=== PATIENT | male | born 1965 | race Caucasian/White ===

== ENCOUNTER 2016-07-02 08:01 | Day surgery (SDC) | payer OTHER ==
[~2016-07-02 08:01] MED LIST: Lactated Ringers 1,000 ML IV SCH
[2016-07-02] MEDS ORDERED: Clindamycin Phosphate in D5W 600 MG in Premix Bag 1 BAG IV ONE ×2 (12:00)
[2016-07-02] MEDS ORDERED: Bupivacaine 0.25%/EPINEPHrine 1:200,000 10 ML SDV INJECT ONE (12:00)
[2016-07-02] MEDS ORDERED: Acetaminophen/HYDROcodone 325-5 MG Tab PO PRN (12:00)
[2016-07-02] MEDS ORDERED: Propofol 200 MG/20 ML SDV ONE (12:16)
[2016-07-02] MEDS ORDERED: Midazolam 1 MG/ML 2 ML SDV ONE (12:16)
[2016-07-02] MEDS ORDERED: Lidocaine 2% 5 ML SDV ONE (12:16)
[2016-07-02] MEDS ORDERED: fentaNYL 250 MCG/5 ML SDV ONE (12:17)
[2016-07-02] MEDS ORDERED: Ondansetron 4 MG/2 ML SDV ONE (12:17)
--- NOTE | 2016-07-02 12:41 | PCM.PREANE ---
Preanesthetic Assessment - Anesthesia/Transfusion/Family Hx Anesthesia History: Prior Anesthesia Without Reaction Family History of Anesthesia Reaction: No Transfusion History: No Prior Transfusion(s) Intubation History: Unknown - Review of Systems General: No Symptoms Pulmonary: No Symptoms Cardiovascular: No Symptoms Gastrointestinal: No symptoms Neurological: No Symptoms Other: Reports: None - Physical Assessment Height: 1.8 m Weight: 95.254 kg ASA Class: 2 Mental Status: Alert & Oriented x3 Airway Class: Mallampati = 2 Dentition: Reports: Normal Dentition Thyro-Mental Finger Breadths: 3 Mouth Opening Finger Breadths: 3 ROM/Head Extension: Full Lungs: Clear to auscultation, Normal respiratory effort Cardiovascular: Regular Rate, Regular Rhythm - Allergies Allergies/Adverse Reactions: Allergies Allergy/AdvReac Type Severity Reaction Status Date / Time cephalexin [From Keflex] Allergy Rash Verified 06/30/16 10:37 - Blood Blood Available: No - Anesthesia Plan Pre-Op Medication Ordered: None - Acknowledgements Anesthesia Type Planned: General Anesthesia Pt an Appropriate Candidate for the Planned Anesthesia: Yes Alternatives and Risks of Anesthesia Discussed w Pt/Guardian: Yes Pt/Guardian Understands and Agrees with Anesthesia Plan: Yes PreAnesthesia Questionnaire Cardiovascular History: Reports: High cholesterol, Hypertension Gastrointestinal History: Reports: GERD Musculoskeletal History: Reports: Arthritis, Back pain, chronic Neurological History: Reports: Concussion - Past Surgical History Head Surgeries/Procedures: Reports: None GI Surgical History: Reports: Colonoscopy, EGD Musculoskeletal Surgical History: Reports: Other (see below) Other Musculoskeletal Surgeries/Procedures:: rt thumb surgery x2, lt thumb surgery x1 - SUBSTANCE USE Smoking Status *Q: Former Smoker (quit 13 years ago) Second Hand Smoke Exposure: No Recreational Drug Use History: No - HOME MEDS Home Medications: Home Meds Esomeprazole Magnesium [Nexium] 40 mg PO ASDIRECTED 06/30/16 [History] Hydrocodone/Acetaminophen [Hydrocodon-Acetaminophen 5-325] 1 tab PO ASDIRECTED PRN 06/30/16 [History] Losartan Potassium 100 mg PO BEDTIME 06/30/16 [History] Simvastatin [Zocor] 40 mg PO BEDTIME 06/30/16 [History] Zolpidem [Ambien] 10 mg PO BEDTIME 06/30/16 [History] - CURRENT (IN HOUSE) MEDS Current Meds: Current Medications Hydrocodone Bitart/Acetaminophen ([place] 325-5 Mg) 1 tab PO Q4H PRN PRN Reason: Pain Lactated Ringer's (Ringers, Lactated) 1,000 mls @ 125 mls/hr IV ASDIRECTED CASSY Last Admin: 07/02/16 11:20 Dose: 125 mls/hr Discontinued Medications Bupivacaine HCl/Epinephrine Bitart (Marcaine 0.25%/Epinephrine 1:200,000) 10 ml INJECT ONETIME ONE Stop: 07/02/16 12:01 Fentanyl (Sublimaze) Confirm Administered Dose 250 mcg .ROUTE .STK-MED ONE Stop: 07/02/16 12:18 Clindamycin Phosphate 600 mg/ (Premix) 50 mls @ 150 mls/hr IV ONETIME ONE Stop: 07/02/16 12:19 Lidocaine (Xylocaine-Mpf 2%) Confirm Administered Dose 10 ml .ROUTE .STK-MED ONE Stop: 07/02/16 12:17 Midazolam HCl (Versed 1 Mg/Ml) Confirm Administered Dose 2 mg .ROUTE .STK-MED ONE Stop: 07/02/16 12:17 Ondansetron HCl (Zofran) Confirm Administered Dose 4 mg .ROUTE .STK-MED ONE Stop: 07/02/16 12:18 Propofol (Diprivan 20 Ml) Confirm Administered Dose 400 mg .ROUTE .STK-MED ONE Stop: 07/02/16 12:17
[2016-07-02] MEDS ORDERED: Bupivacaine 0.25%/EPINEPHrine 1:200,000 10 ML SDV ONE (12:53)
[2016-07-02] MEDS: fentaNYL 100 MCG/2 ML SDV IVPUSH PRN ×2 (15:08→15:15)
--- NOTE | 2016-07-02 15:42 | PCM.POSTAN ---
POST ANESTHESIA ASSESSMENT - MENTAL STATUS Mental Status: alert, oriented - RESPIRATORY Respiratory Status: respiratory rate WNL, airway patent, O2 saturation stable - CARDIOVASCULAR CV Status: pulse rate WNL, blood pressure stable - GASTROINTESTINAL GI Status: no symptoms - PAIN Pain Score: 3 - POST OP HYDRATION Hydration Status: adequate & stable - OBSERVATIONS Free Text/Narrative:: no anesthesia problems
--- NOTE | 2016-07-02 15:56 | PCM48HPAN ---
Post Anesthesia Note - EVALUATION WITHIN 48HRS OF ANESTHETIC Vital Signs in Normal Range: Yes Patient Participated in Evaluation: Yes Respiratory Function Stable: Yes Airway Patent: Yes Cardiovascular Function Stable: Yes Hydration Status Stable: Yes Pain Control Satisfactory: Yes Nausea and Vomiting Control Satisfactory: Yes Mental Status Recovered: Yes
--- NOTE | 2016-07-02 16:15 | PCM.OPNOTE ---
- General Post-Op/Procedure Note Date of Surgery/Procedure: 07/02/16 Operative Procedure(s): fusion of right thumb cmc joint Pre Op Diagnosis: right thumb cmc arthritis Post-Op Diagnosis: Same Anesthesia Technique: General LMA, Local Primary Surgeon: Brittany Mckeon Carpet Sewer: Lucía Obrien Complications: None Condition: Good Free Text/Narrative:: Intake & Output 07/02/16 07/02/16 07/02/16 07:59 15:59 23:59 Intake Total 1200 Balance 1200
[2016-07-02 16:59] VITALS: BP 117/95
--- NOTE | 2016-07-03 21:36 | OR ---
SURGEON: ASAEL MCKEON MD DATE OF PROCEDURE: 07/02/2016 PREOPERATIVE DIAGNOSIS: Right thumb CMC joint arthritis. POSTOPERATIVE DIAGNOSIS: Right thumb CMC joint arthritis. PROCEDURE: Fusion of right thumb CMC joint. SILO TENDER: Lucía Obrien PA-C. ANESTHESIA: General LMA with local anesthesia. INDICATIONS: Mr. Dominguez is a 51-year-old gentleman, who is seen today in evaluation for right thumb CMC arthritis. Risks and benefits of fusion of the CMC joint were discussed with him and he was in agreement to proceed. Risks were including, but not limited to, bleeding, infection, damage to underlying or overlying structures, continued arthritis on the hand and wrist, and potential need for future interventions and possible scarring. PROCEDURE IN DETAIL: After informed consent was obtained and placed on the chart, the patient was brought to the operating theater in supine position. After adequate general anesthesia was obtained, the area was prepped and draped, and a time-out was completed to confirm side and site. The arm was then exsanguinated and tourniquet was inflated to 200 mmHg. A local anesthetic was injected into the area. Once adequately anesthetized, attention was then paid to a curvilinear incision over the CMC joint of the right thumb. Dissection was carried down until the joint was completely visualized with regard to the base of the metacarpal and carpal bone. A flat bone saw was used to remove the proximal end of the metacarpal and distal end of the trapezium. After copious irrigation of this joint and meticulous hemostasis while taking care to protect all superficial branches of the radial nerve, two 0.62 K-wires were placed in a retrograde fashion through the metacarpal. This was then reapproximated and the pins were driven in a retrograde fashion into the remaining trapezium. Appropriate position was confirmed under fluoroscopy. Once this was completed, the area was copiously irrigated and the periosteum and joint capsule were closed using FiberWire stitches in a [id number] fashion and the skin was closed using deep 4-0 Monocryl stitches and a running 4-0 subcuticular for the skin. The wound was dressed with a short-arm thumb spica splint. Of note, there were no Jurgan's Balls for coverage of the pins and they were trimmed flush to the skin. We will remove these with a small stab incision in the clinic later. The patient tolerated the procedure well and all counts and needles were correct at the end of the case. FOLLOWUP INSTRUCTIONS: The patient will see us in clinic in approximately 2 weeks for possible splinting, sooner if any problems, questions, or concerns. He was given a prescription for pain control. HEGGTHE / PINKYL /[id number]
== END 2016-07-02 16:50 | disposition home or self-care (01) ==
LOC: MW.SDS 08:01
PROVIDERS: ATTEND Plastic Surgery
DX: M18.31 Unilateral post-traumatic osteoarthritis of first carpometacarpal joint, right hand (principal); I10 Essential (primary) hypertension; K21.9 Gastro-esophageal reflux disease without esophagitis; E78.00 Pure hypercholesterolemia, unspecified; Z88.1 Allergy status to other antibiotic agents; Z79.899 Other long term (current) drug therapy; Z98.890 Other specified postprocedural states
CPT/HCPCS: 26841; A9270; J2250; J2405; J3010; J7120; 01830; J2704

== ENCOUNTER → 2016-07-07 | Outpatient (CLI) | payer OTHER ==
[2016-07-07 15:44] LABS: CHLORIDE,CL 106 mmol/L (98-110); SODIUM,NA 143 mmol/L (136-146)
== END ==
LOC: MW.CHFP 15:00
PROVIDERS: ATTEND Nurse Practitioner Family
DX: E78.00 Pure hypercholesterolemia, unspecified (principal)
CPT/HCPCS: 36415; 80053; 80061

== ENCOUNTER 2017-03-02 03:00 | Emergency (ER) | payer OTHER ==
[2017-03-02] MEDS ORDERED: Sodium Chloride 0.9% 10 ML Syringe FLUSH PRN (03:17)
[2017-03-02] MEDS ORDERED: Sodium Chloride 0.9% 2.5 ML Syringe FLUSH PRN (03:17)
[2017-03-02] MEDS ORDERED: Albuterol/Ipratropium 3.0-0.5 MG/3 ML Neb Soln NEB ONE (03:17)
[2017-03-02] MEDS ORDERED: Sodium Chloride 0.9% 1,000 ML IV ONE (03:17)
[2017-03-02] MEDS ORDERED: Ketorolac 30 MG/ML SDV IVPUSH ONE (03:17)
[2017-03-02] MEDS ORDERED: Acetaminophen 500 MG Tab PO ONE (03:20)
--- NOTE | 2017-03-02 03:20 | EDM.PDOC ---
ED HPI GENERAL MEDICAL PROBLEM - General Chief Complaint: Respiratory Problem Stated Complaint: SHORTNESS OF BREATH, COLD Time Seen by Provider: 03/02/17 03:05 - History of Present Illness INITIAL COMMENTS - FREE TEXT/NARRATIVE: HISTORY AND PHYSICAL: History of present illness: The patient is a 51-year-old male with a history of hypertension and hypercholesterolemia but no pulmonary issues who presents with complaints of cough occasionally productive of phlegm, chest congestion sore throat subjective fever and chills diffuse body aches and shortness of breath that have been ongoing for the last 24-36 hours. Patient states he did get his influenza shot and he had an episode similar to this a few years ago and was worked up. He says he has discomfort when he is coughing which is bilateral and is improved when he is not coughing. He has no abdominal pain no nausea vomiting or diarrhea no leg pain or swelling no urinary complaints. Patient's is starting to get ill as well he says that he only has coughed up a small amount of phlegm which was green in color. Review of systems: As per history of present illness and below otherwise all systems reviewed and negative. Past medical history: As per history of present illness and as reviewed below otherwise noncontributory. Surgical history: As per history of present illness and as reviewed below otherwise noncontributory. Social history: No reported history of drug or alcohol abuse. Family history: As per history of present illness and as reviewed below otherwise noncontributory. Physical exam: Gen.: Well-developed well-nourished man who is not breathless on my evaluation and not hoarse. He doesn't have nasal quality to voice and vital signs are noted by me including the temp of 101.7 orally. His O2 sat of 92% on room air is also noted. HEENT: Atraumatic, normocephalic, pupils reactive, negative for conjunctival pallor or scleral icterus, mucous membranes moist, throat clear of exudates but there is some posterior oropharyngeal erythema, there is no cervical adenopathy or nuchal rigidity, neck supple, nontender, trachea midline. Lungs: Clear to auscultation, breath sounds equal bilaterally, chest nontender. No worker breathing or sensory muscle use no wheezing or stridor. There is some diminished breath sounds at the bases but is otherwise clear when the patient takes a deep breath it seems to trigger a cough. Heart: S1S2, regular rhythm and tachycardic rate of my evaluation, negative for clicks, rubs, or JVD. Abdomen: Soft, nondistended, nontender. Negative for masses or hepatosplenomegaly. Negative for costovertebral tenderness. Pelvis: Stable nontender. Genitourinary: Deferred. Rectal: Deferred. Extremities: Atraumatic, negative for cords or calf pain. Neurovascular unremarkable. No pedal edema or leg asymmetry Neuro: Awake, alert, oriented. Cranial nerves II through XII unremarkable. Cerebellum unremarkable. Motor and sensory unremarkable throughout. Exam nonfocal. Diagnostics: EKG chest x-ray CBC CMP rapid strep influenza lactic acid Therapeutics: IV fluids Tylenol Toradol DuoNeb Patient is aware of all testing results and care plan for home including Tamiflu prescription, which she can fill or not fill depending on his preference , Tylenol and ibuprofen for fevers and body aches hydration and follow-up in the clinic. Patient's O2 sat on room air is currently 94% on my evaluation Impression: Influenza A Definitive disposition and diagnosis as appropriate pending reevaluation and review of above. Chest Pain Score (Numeric/FACES): 3 - Related Data Allergies Allergy/AdvReac Type Severity Reaction Status Date / Time cephalexin [From Keflex] Allergy Rash Verified 06/30/16 10:37 Home Meds: Home Meds Esomeprazole Magnesium [Nexium] 40 mg PO ASDIRECTED 06/30/16 [History] Losartan Potassium 100 mg PO BEDTIME 06/30/16 [History] Simvastatin [Zocor] 40 mg PO BEDTIME 06/30/16 [History] Zolpidem [Ambien] 10 mg PO BEDTIME 06/30/16 [History] Escitalopram Oxalate 10 mg PO DAILY 03/02/17 [History] Pregabalin [Lyrica] 03/02/17 [History] Past Medical History Cardiovascular History: Reports: High Cholesterol, Hypertension Gastrointestinal History: Reports: GERD Musculoskeletal History: Reports: Arthritis, Back Pain, Chronic Neurological History: Reports: Concussion - Past Surgical History Head Surgeries/Procedures: Reports: None GI Surgical History: Reports: Colonoscopy, EGD Musculoskeletal Surgical History: Reports: Other (See Below) Other Musculoskeletal Surgeries/Procedures:: CMC fusion, previous thumb surgeries Social & Family History - Tobacco Use Smoking Status *Q: Never Smoker Month Tobacco Last Used: quit smoking 14 yrs ago Second Hand Smoke Exposure: No - Caffeine Use Caffeine Use: Reports: Coffee, Soda, Tea - Recreational Drug Use Recreational Drug Use: No ED ROS GENERAL - Review of Systems Review Of Systems: ROS reveals no pertinent complaints other than HPI. ED EXAM, GENERAL - Physical Exam Exam: See Below (See dictation) Course - Vital Signs Last Recorded V/S: Last Vital Signs Temp 38.7 C H 03/02/17 03:38 Pulse 112 H 03/02/17 03:44 Resp 18 03/02/17 03:44 BP 100/74 03/02/17 03:44 Pulse Ox 99 03/02/17 03:44 - Orders/Labs/Meds Orders: Active Orders 24 hr Category Date Time Status EKG Documentation Completion [RC] STAT Care 03/02/17 03:16 Active RT Aerosol Therapy [RC] ASDIRECTED Care 03/02/17 03:17 Active Chest 2V [CR] Stat Exams 03/02/17 03:17 Taken CULTURE STREP A CONFIRMATION [RM] Stat Lab 03/02/17 03:34 Results STREP SCRN A RAPID W CULT CONF [RM] Stat Lab 03/02/17 03:34 Results Sodium Chloride 0.9% [Saline Flush] Med 03/02/17 03:17 Active 10 ml FLUSH ASDIRECTED PRN Sodium Chloride 0.9% [Saline Flush] Med 03/02/17 03:17 Active 2.5 ml FLUSH ASDIRECTED PRN Saline Lock Insert [OM.PC] Stat Oth 03/02/17 03:16 Ordered Medication Orders Sodium Chloride (Saline Flush) 10 ml FLUSH ASDIRECTED PRN PRN Reason: Keep Vein Open Last Admin: 03/02/17 03:43 Dose: 10 ml Sodium Chloride (Saline Flush) 2.5 ml FLUSH ASDIRECTED PRN PRN Reason: Keep Vein Open Last Admin: 03/02/17 03:38 Dose: 2.5 ml Labs: Laboratory Tests 03/02/17 03/02/17 03/02/17 Range/Units 03:34 03:34 03:34 WBC 8.12 (4.0-11.0) K/uL RBC 5.07 (4.50-5.90) M/uL Hgb 15.8 (13.0-17.0) g/dL Hct 45.4 (38.0-50.0) % MCV 89.5 (80.0-98.0) fL MCH 31.2 (27.0-32.0) pg MCHC 34.8 (31.0-37.0) g/dL RDW Std Deviation 43.1 (28.0-62.0) fl RDW Coeff of Jose David 13 (11.0-15.0) % Plt Count 189 (150-400) K/uL MPV 9.30 (7.40-12.00) fL Neut % (Auto) 78.1 (48.0-80.0) % Lymph % (Auto) 10.0 L (16.0-40.0) % [place] % (Auto) 10.8 (0.0-15.0) % Eos % (Auto) 1.0 (0.0-7.0) % Baso % (Auto) 0.1 (0.0-1.5) % Neut # (Auto) 6.3 H (1.4-5.7) K/uL Lymph # (Auto) 0.8 (0.6-2.4) K/uL [place] # (Auto) 0.9 H (0.0-0.8) K/uL Eos # (Auto) 0.1 (0.0-0.7) K/uL Baso # (Auto) 0.0 (0.0-0.1) K/uL Nucleated RBC % 0.0 /100WBC Nucleated RBCs # 0 K/uL Lactate 1.4 (0.20-2.00) mmol/L Sodium 138 (136-146) mmol/L Potassium 3.9 (3.5-5.1) mmol/L Chloride 103 (98-110) mmol/L Carbon Dioxide 24 (21-31) mmol/L BUN 15 (6.0-23.0) mg/dL Creatinine 0.9 (0.6-1.5) mg/dL Est Cr Clr Drug Dosing 104.58 mL/min Estimated GFR (MDRD) > 60.0 ml/min Glucose 107 (60-110) mg/dL Calcium 9.7 (8.8-10.8) mg/dL Total Bilirubin 1.5 (0.1-1.5) mg/dL AST 26 (5-40) IU/L ALT 42 (8-54) IU/L Alkaline Phosphatase 82 (40-150) Total Protein 7.3 (6.0-8.0) g/dL Albumin 4.4 (3.5-5.0) g/dL Globulin 2.9 (2.0-3.5) g/dL Albumin/Globulin Ratio 1.5 (1.3-2.8) Meds: Medications Generic Name Dose Route Start Last Admin Trade Name Freq PRN Reason Stop Dose Admin Sodium Chloride 10 ml 03/02/17 03:17 03/02/17 03:43 Saline Flush FLUSH 10 ml ASDIRECTED PRN Administration Keep Vein Open Sodium Chloride 2.5 ml 03/02/17 03:17 03/02/17 03:38 Saline Flush FLUSH 2.5 ml ASDIRECTED PRN Administration Keep Vein Open Discontinued Medications Generic Name Dose Route Start Last Admin Trade Name Saúlq PRN Reason Stop Dose Admin Acetaminophen 1,000 mg 03/02/17 03:20 03/02/17 03:38 Tylenol Extra Strength PO 03/02/17 03:21 1,000 mg ONETIME ONE Administration Albuterol/Ipratropium 3 ml 03/02/17 03:17 03/02/17 03:39 Duoneb 3.0-0.5 Mg/3 Ml NEB 03/02/17 03:18 3 ml ONETIME ONE Administration Sodium Chloride 1,000 mls @ 999 mls/hr 03/02/17 03:17 03/02/17 03:41 Normal Saline IV 03/02/17 04:17 999 mls/hr STAT ONE Administration Ketorolac Tromethamine 30 mg 03/02/17 03:17 03/02/17 03:42 Toradol IVPUSH 03/02/17 03:18 30 mg ONETIME ONE Administration Departure - Departure Time of Disposition: 04:53 Disposition: Home, Self-Care 01 Condition: Good Clinical Impression: Influenza A - Discharge Information Referrals: PCP,None [Primary Care Provider] - Forms: ED Department Discharge Additional Instructions: The following information is given to patients seen in the emergency department who are being discharged to home. This information is to outline your options for follow-up care. We provide all patients seen in our emergency department with a follow-up referral. The need for follow-up, as well as the timing and circumstances, are variable depending upon the specifics of your emergency department visit. If you don't have a primary care physician on staff, we will provide you with a referral. We always advise you to contact your personal physician following an emergency department visit to inform them of the circumstance of the visit and for follow-up with them and/or the need for any referrals to a consulting specialist. The emergency department will also refer you to a specialist when appropriate. This referral assures that you have the opportunity for followup care with a specialist. All of these measure are taken in an effort to provide you with optimal care, which includes your followup. Under all circumstances we always encourage you to contact your private physician who remains a resource for coordinating your care. When calling for followup care, please make the office aware that this follow-up is from your recent emergency room visit. If for any reason you are refused follow-up, please contact the [facility] emergency department at and ask to speak to the emergency department charge nurse. [facility] Primary care- Internal [place] [address] Push hydration and rest. Please use [id number] Tylenol and ibuprofen for fever and body aches. Take Tamiflu as you choose and as prescribed as we discussed. Use cough medicine prescribed as needed and please call our clinic or your provider for reevaluation and further care in the next few days. Return to ER as needed and as discussed. - My Orders Last 24 Hours: My Active Orders 03/02/17 03:16 EKG Documentation Completion [RC] STAT Saline Lock Insert [OM.PC] Stat 03/02/17 03:17 RT Aerosol Therapy [RC] ASDIRECTED Chest 2V [CR] Stat Sodium Chloride 0.9% [Saline Flush] 10 ml FLUSH ASDIRECTED PRN Sodium Chloride 0.9% [Saline Flush] 2.5 ml FLUSH ASDIRECTED PRN 03/02/17 03:34 CULTURE STREP A CONFIRMATION [RM] Stat STREP SCRN A RAPID W CULT CONF [RM] Stat - Assessment/Plan Last 24 Hours: My Active Orders 03/02/17 03:16 EKG Documentation Completion [RC] STAT Saline Lock Insert [OM.PC] Stat 03/02/17 03:17 RT Aerosol Therapy [RC] ASDIRECTED Chest 2V [CR] Stat Sodium Chloride 0.9% [Saline Flush] 10 ml FLUSH ASDIRECTED PRN Sodium Chloride 0.9% [Saline Flush] 2.5 ml FLUSH ASDIRECTED PRN 03/02/17 03:34 CULTURE STREP A CONFIRMATION [RM] Stat STREP SCRN A RAPID W CULT CONF [RM] Stat
[2017-03-02 03:45] VITALS: BP 100/74
[2017-03-02 04:01] LABS: CHLORIDE,CL 103 mmol/L (98-110); SODIUM,NA 138 mmol/L (136-146)
--- NOTE | 2017-03-02 15:50 | CR ---
EXAM DATE: 03/02/17 PATIENT'S AGE: 51 Patient: YG CESPEDES Facility: [place], [place] Site . Site : [id number] Study: XRay Chest [id number] 4:11:07 AM Ordering Physician: Tyson Abdul Final Report: INDICATIONS: Shortness of breath. TECHNIQUE: Chest 2 view. COMPARISON: None FINDINGS: No pneumothorax, pleural effusion or airspace consolidation. Cardiac and mediastinal contours are within normal limits. The upper abdomen and osseous structures show no acute abnormality. IMPRESSION: No evidence of acute cardiopulmonary disease. Dictated by Marcos Whelan MD @ 03/02/2017 4:14:50 AM Dictated by: Marcos Whelan MD @ 03/02/2017 04:14:57 (Electronic Signature) Report Signed by Proxy. [facility]
== END 2017-03-02 05:15 | disposition home or self-care (01) ==
LOC: MW.ED 03:00
DX: J10.1 Influenza due to other identified influenza virus with other respiratory manifestations (principal); I10 Essential (primary) hypertension; E78.00 Pure hypercholesterolemia, unspecified; Z88.1 Allergy status to other antibiotic agents; Z79.899 Other long term (current) drug therapy
CPT/HCPCS: 36415; 71046; 80053; 83605; 85025; 87081; 87804; 87880; 93005; 94640; 96361; 96374; 99285; A9270; J1885; J7040; 99284

== ENCOUNTER 2017-05-28 15:05 | Observation (INO) | payer OTHER ==
[2017-05-28] MEDS ORDERED: Sodium Chloride 0.9% 10 ML Syringe FLUSH PRN ×2 (15:11→17:42)
[2017-05-28] MEDS ORDERED: Sodium Chloride 0.9% 2.5 ML Syringe FLUSH PRN ×2 (15:11→17:42)
[2017-05-28] MEDS ORDERED: Aspirin 81 MG Tab.Chew PO ONE (15:12)
[2017-05-28] MEDS: Nitroglycerin 0.4 MG Tab.SL SL PRN ×3 (15:42→15:52)
[2017-05-28 16:03] LABS: CHLORIDE,CL 104 mmol/L (98-107); SODIUM,NA 140 mmol/L (136-148)
--- NOTE | 2017-05-28 16:11 | EDM.PDOC ---
ED HPI GENERAL MEDICAL PROBLEM - General Chief Complaint: Chest Pain Stated Complaint: CHEST PAIN Time Seen by Provider: 05/28/17 15:11 Source of Information: Reports: Patient History Limitations: Reports: No Limitations - History of Present Illness INITIAL COMMENTS - FREE TEXT/NARRATIVE: History of present illness: []Patient started having chest pain as his front left axilla 2 hours prior to arrival has been a 6/10 pain and continuous. It has not let up. He denies any sweating, dizziness states he feels a little short of breath but also states repeatedly he thinks that's his abdomen getting in the way. 2 weeks ago patient' s brother had a heart attack with a 90% blockage of coronary artery. His father has had several KS's in the past. Review of systems: As per history of present illness and below otherwise all systems reviewed and negative. Past medical history: As per history of present illness and as reviewed below otherwise noncontributory. Surgical history: As per history of present illness and as reviewed below otherwise noncontributory. Social history: No reported history of drug or alcohol abuse. Family history: As per history of present illness and as reviewed below otherwise noncontributory. Physical exam: General: Well developed, well nourished in NAD HEENT: Atraumatic, normocephalic, pupils reactive, negative for conjunctival pallor or scleral icterus, mucous membranes moist, throat clear, neck supple, nontender, trachea midline. Lungs: Clear to auscultation, breath sounds equal bilaterally, chest nontender. Heart: S1S2, regular, negative for clicks, rubs, or JVD. Abdomen: Soft, nondistended, nontender. Negative for masses or hepatosplenomegaly. Negative for costovertebral tenderness. Pelvis: Stable nontender. Genitourinary: Deferred. Rectal: Deferred. Extremities: Atraumatic, negative for cords or calf pain. Neurovascular unremarkable. Neuro: Awake, alert, oriented. Cranial nerves II through XII unremarkable. Cerebellum unremarkable. Motor and sensory unremarkable throughout. Exam nonfocal. Diagnostics: []CBC negative chemistry negative troponin negative chest x-ray negative EKG normal sinus rhythm no acute ischemia Therapeutics: []Aspirin and nitroglycerin with alleviation of chest pain completely Impression: []ACS Plan: []Admit for rule out KS Definitive disposition and diagnosis as appropriate pending reevaluation and review of above. Left Upper Chest Pain Score (Numeric/FACES): 0 - Related Data Allergies Allergy/AdvReac Type Severity Reaction Status Date / Time cephalexin [From Keflex] Allergy Rash Verified 06/30/16 10:37 Home Meds: Home Meds Esomeprazole Magnesium [Nexium] 40 mg PO ASDIRECTED 06/30/16 [History] Losartan Potassium 100 mg PO BEDTIME 06/30/16 [History] Simvastatin [Zocor] 40 mg PO BEDTIME 06/30/16 [History] Zolpidem [Ambien] 10 mg PO BEDTIME 06/30/16 [History] Escitalopram Oxalate 10 mg PO DAILY 03/02/17 [History] Past Medical History Cardiovascular History: Reports: High Cholesterol, Hypertension Gastrointestinal History: Reports: GERD Musculoskeletal History: Reports: Arthritis, Back Pain, Chronic Neurological History: Reports: Concussion - Past Surgical History Head Surgeries/Procedures: Reports: None GI Surgical History: Reports: Colonoscopy, EGD Musculoskeletal Surgical History: Reports: Other (See Below) Other Musculoskeletal Surgeries/Procedures:: CMC fusion, previous thumb surgeries Social & Family History - Family History Family Medical History: Noncontributory - Tobacco Use Smoking Status *Q: Former Smoker Used Tobacco, but Quit: Yes Month/Year Tobacco Last Used: 2003 Second Hand Smoke Exposure: No - Caffeine Use Caffeine Use: Reports: Coffee - Recreational Drug Use Recreational Drug Use: No ED ROS GENERAL - Review of Systems Review Of Systems: See Below (See history of present illness) ED EXAM, GENERAL - Physical Exam Exam: See Below (See history of present illness) Course - Vital Signs Last Recorded V/S: Last Vital Signs Temp 97.9 F 05/28/17 15:10 Pulse 79 05/28/17 15:10 Resp 18 05/28/17 15:10 BP 124/73 05/28/17 15:56 Pulse Ox 99 05/28/17 15:10 - Orders/Labs/Meds Orders: Active Orders 24 hr Category Date Time Status Sodium Chloride 0.9% [Saline Flush] Med 05/28/17 15:11 Active 10 ml FLUSH ASDIRECTED PRN Sodium Chloride 0.9% [Saline Flush] Med 05/28/17 15:11 Active 2.5 ml FLUSH ASDIRECTED PRN Saline Lock Insert [OM.PC] Stat Oth 05/28/17 15:11 Ordered Medication Orders Sodium Chloride (Saline Flush) 10 ml FLUSH ASDIRECTED PRN PRN Reason: Keep Vein Open Sodium Chloride (Saline Flush) 2.5 ml FLUSH ASDIRECTED PRN PRN Reason: Keep Vein Open Labs: Laboratory Tests 05/28/17 05/28/17 05/28/17 Range/Units 15:32 15:32 15:32 WBC 6.67 (4.0-11.0) K/uL RBC 5.06 (4.50-5.90) M/uL Hgb 15.7 (13.0-17.0) g/dL Hct 44.9 (38.0-50.0) % MCV 88.7 (80.0-98.0) fL MCH 31.0 (27.0-32.0) pg MCHC 35.0 (31.0-37.0) g/dL RDW Std Deviation 41.1 (28.0-62.0) fl RDW Coeff of Jose David 13 (11.0-15.0) % Plt Count 221 (150-400) K/uL MPV 9.50 (7.40-12.00) fL Neut % (Auto) 49.9 (48.0-80.0) % Lymph % (Auto) 41.2 H (16.0-40.0) % [place] % (Auto) 6.7 (0.0-15.0) % Eos % (Auto) 1.9 (0.0-7.0) % Baso % (Auto) 0.3 (0.0-1.5) % Neut # (Auto) 3.3 (1.4-5.7) K/uL Lymph # (Auto) 2.8 H (0.6-2.4) K/uL [place] # (Auto) 0.5 (0.0-0.8) K/uL Eos # (Auto) 0.1 (0.0-0.7) K/uL Baso # (Auto) 0.0 (0.0-0.1) K/uL Nucleated RBC % 0.0 /100WBC Nucleated RBCs # 0 K/uL Sodium 140 (136-148) mmol/L Potassium 4.3 (3.5-5.1) mmol/L Chloride 104 (98-107) mmol/L Carbon Dioxide 27.9 (21.0-32.0) mmol/L BUN 22 H (7.0-18.0) mg/dL Creatinine 0.9 (0.8-1.3) mg/dL Est Cr Clr Drug Dosing 100.26 mL/min Estimated GFR (MDRD) > 60.0 ml/min Glucose 75 (74-106) mg/dL Calcium 9.2 (8.5-10.1) mg/dL Total Bilirubin 0.8 (0.2-1.0) mg/dL AST 27 (15-37) IU/L ALT 48 (14-63) IU/L Alkaline Phosphatase 69 (46-116) U/L Troponin I < 0.050 (0.000-0.056) ng/mL B-Natriuretic Peptide < 15 (<100) PG/ML Total Protein 7.3 (6.4-8.2) g/dL Albumin 4.2 (3.4-5.0) g/dL Globulin 3.1 (2.0-3.5) g/dL Albumin/Globulin Ratio 1.4 (1.3-2.8) Lipase 180 (73-393) U/L Meds: Medications Generic Name Dose Route Start Last Admin Trade Name Freq PRN Reason Stop Dose Admin Sodium Chloride 10 ml 05/28/17 15:11 Saline Flush FLUSH ASDIRECTED PRN Keep Vein Open Sodium Chloride 2.5 ml 05/28/17 15:11 Saline Flush FLUSH ASDIRECTED PRN Keep Vein Open Discontinued Medications Generic Name Dose Route Start Last Admin Trade Name Freq PRN Reason Stop Dose Admin Aspirin 324 mg 05/28/17 15:12 05/28/17 15:40 Aspirin PO 05/28/17 15:13 324 mg ONETIME ONE Administration Nitroglycerin 0.4 mg 05/28/17 15:12 05/28/17 15:52 Nitrostat SL 0.4 mg Q5M PRN Administration Chest Pain Departure - Departure Time of Disposition: 16:40 Disposition: Refer to Observation Condition: Good Clinical Impression: Acute coronary syndrome Referrals: PCP,Unknown [Primary Care Provider] - Forms: ED Department Discharge - My Orders Last 24 Hours: My Active Orders 05/28/17 15:11 Sodium Chloride 0.9% [Saline Flush] 10 ml FLUSH ASDIRECTED PRN Sodium Chloride 0.9% [Saline Flush] 2.5 ml FLUSH ASDIRECTED PRN Saline Lock Insert [OM.PC] Stat - Assessment/Plan Last 24 Hours: My Active Orders 05/28/17 15:11 Sodium Chloride 0.9% [Saline Flush] 10 ml FLUSH ASDIRECTED PRN Sodium Chloride 0.9% [Saline Flush] 2.5 ml FLUSH ASDIRECTED PRN Saline Lock Insert [OM.PC] Stat
--- NOTE | 2017-05-28 16:31 | CR ---
EXAMINATION: Portable chest radiograph. HISTORY: Shortness of breath. FINDINGS: The trachea is midline. The cardiomediastinal silhouette is within normal limits. No pulmonary infilt rates, effusions or pneumothorax. Osseous structures appear unremarkable. IMPRESSION: No acute cardiopulmonary process.
[2017-05-28] MEDS ORDERED: Acetaminophen 325 MG Tab PO PRN (17:42)
[2017-05-28] MEDS ORDERED: oxyCODONE 5 MG Tab PO PRN (17:42)
[2017-05-28] MEDS ORDERED: Ondansetron 4 MG Tab.DIS PO PRN (17:42)
[2017-05-28] MEDS ORDERED: Enoxaparin 40 MG/0.4 ML Syringe SUBCUT SCH (17:45)
[2017-05-28] MEDS ORDERED: Nitroglycerin 0.4 MG Tab.SL SL PRN (17:46)
--- NOTE | 2017-05-28 17:48 | PCM.HP ---
H&P History of Present Illness - General Date of Service: 05/28/17 Admit Problem/Dx: Admission Diagnosis/Problem Admission Diagnosis/Problem Acute coronary syndrome - History of Present Illness Initial Comments - Free Text/Narative: This is a 52-year-old male who is presenting to the ER secondary to chest pain on the front left side towards the shoulder area that has been ongoing for the past couple of hours, the chest pain is about 6 out of 10 in nature. It has not dissipated, patient does not know of any known triggers or factors that may have caused it. Patient denies any signs of infection including nausea vomiting diarrhea or constipation, patient denies any dizziness, but he does state he has some mild shortness of breath possibly anxiety related as the patient has also reported that he just recently had a brother that had a myocardial infarction due to coronary artery disease as well his has a significant family history with his father also having several heart attacks. She also does have a history of gastroesophageal reflux disease for which he is taking a PPI, patient also is taking a statin for dyslipidemia, Ambien for sleep dysfunction, and SSRI for anxiety/depression type issues. Left Upper Chest Pain Score (Numeric/FACES): 0 - Related Data Allergies/Adverse Reactions: Allergies Allergy/AdvReac Type Severity Reaction Status Date / Time cephalexin [From Keflex] Allergy Rash Verified 06/30/16 10:37 Home Medications: Home Meds Esomeprazole Magnesium [Nexium] 40 mg PO ASDIRECTED 06/30/16 [History] Losartan Potassium 100 mg PO BEDTIME 06/30/16 [History] Simvastatin [Zocor] 40 mg PO BEDTIME 06/30/16 [History] Zolpidem [Ambien] 10 mg PO BEDTIME 06/30/16 [History] Escitalopram Oxalate 10 mg PO DAILY 03/02/17 [History] Past Medical History Cardiovascular History: Reports: High Cholesterol, Hypertension Gastrointestinal History: Reports: GERD Musculoskeletal History: Reports: Arthritis, Back Pain, Chronic Neurological History: Reports: Concussion - Past Surgical History Head Surgeries/Procedures: Reports: None GI Surgical History: Reports: Colonoscopy, EGD Musculoskeletal Surgical History: Reports: Other (See Below) Other Musculoskeletal Surgeries/Procedures:: CMC fusion, previous thumb surgeries Social & Family History - Family History Family Medical History: Noncontributory - Tobacco Use Smoking Status *Q: Former Smoker Used Tobacco, but Quit: Yes Month/Year Tobacco Last Used: 2003 Second Hand Smoke Exposure: No - Caffeine Use Caffeine Use: Reports: Coffee - Recreational Drug Use Recreational Drug Use: No H&P Review of Systems - Review of Systems: Review Of Systems: ROS reveals no pertinent complaints other than HPI. Exam - Exam Exam: See Below - Vital Signs Vital Signs: Last Vital Signs Temp 36.1 C 05/28/17 16:47 Pulse 62 05/28/17 17:27 Resp 16 05/28/17 16:47 BP 128/79 05/28/17 17:27 Pulse Ox 96 05/28/17 17:27 Weight: 108.3 kg - Exam General: Alert, Oriented, Cooperative Lungs: Clear to Auscultation, Normal Respiratory Effort Cardiovascular: Regular Rate, Regular Rhythm GI/Abdominal Exam: Normal Bowel Sounds, Soft, Non-Tender, No Organomegaly Extremities: Normal Inspection, Normal Range of Motion, Non-Tender - Patient Data Lab Results Last 24 hrs: Laboratory Results - last 24 hr 05/28/17 05/28/17 05/28/17 Range/Units 15:32 15:32 15:32 WBC 6.67 (4.0-11.0) K/uL RBC 5.06 (4.50-5.90) M/uL Hgb 15.7 (13.0-17.0) g/dL Hct 44.9 (38.0-50.0) % MCV 88.7 (80.0-98.0) fL MCH 31.0 (27.0-32.0) pg MCHC 35.0 (31.0-37.0) g/dL RDW Std Deviation 41.1 (28.0-62.0) fl RDW Coeff of Jose David 13 (11.0-15.0) % Plt Count 221 (150-400) K/uL MPV 9.50 (7.40-12.00) fL Neut % (Auto) 49.9 (48.0-80.0) % Lymph % (Auto) 41.2 H (16.0-40.0) % [place] % (Auto) 6.7 (0.0-15.0) % Eos % (Auto) 1.9 (0.0-7.0) % Baso % (Auto) 0.3 (0.0-1.5) % Neut # (Auto) 3.3 (1.4-5.7) K/uL Lymph # (Auto) 2.8 H (0.6-2.4) K/uL [place] # (Auto) 0.5 (0.0-0.8) K/uL Eos # (Auto) 0.1 (0.0-0.7) K/uL Baso # (Auto) 0.0 (0.0-0.1) K/uL Nucleated RBC % 0.0 /100WBC Nucleated RBCs # 0 K/uL Sodium 140 (136-148) mmol/L Potassium 4.3 (3.5-5.1) mmol/L Chloride 104 (98-107) mmol/L Carbon Dioxide 27.9 (21.0-32.0) mmol/L BUN 22 H (7.0-18.0) mg/dL Creatinine 0.9 (0.8-1.3) mg/dL Est Cr Clr Drug Dosing 100.26 mL/min Estimated GFR (MDRD) > 60.0 ml/min Glucose 75 (74-106) mg/dL Calcium 9.2 (8.5-10.1) mg/dL Total Bilirubin 0.8 (0.2-1.0) mg/dL AST 27 (15-37) IU/L ALT 48 (14-63) IU/L Alkaline Phosphatase 69 (46-116) U/L Troponin I < 0.050 (0.000-0.056) ng/mL B-Natriuretic Peptide < 15 (<100) PG/ML Total Protein 7.3 (6.4-8.2) g/dL Albumin 4.2 (3.4-5.0) g/dL Globulin 3.1 (2.0-3.5) g/dL Albumin/Globulin Ratio 1.4 (1.3-2.8) Lipase 180 (73-393) U/L Result Diagrams: 05/28/17 15:32 05/28/17 15:32 Problem List Initiated/Reviewed/Updated: Yes Orders Last 24hrs: Active Orders 24 hr Category Date Time Status Patient Status [ADT] Stat ADT 05/28/17 16:42 Active Cardiac Monitoring [RC] . DIRECTED Care 05/28/17 17:47 Active Height and Weight [RC] UPON Care 05/28/17 17:42 Active Intake and Output [RC] QSHIFT Care 05/28/17 17:42 Active Notify Provider Vital Signs [RC] ASDIRECTED Care 05/28/17 17:42 Active Oxygen Therapy [RC] PRN Care 05/28/17 17:42 Active Up With Assistance [RC] ASDIRECTED Care 05/28/17 17:42 Active VTE/DVT Education [RC] PER UNIT ROUTINE Care 05/28/17 17:42 Active Vital Signs [RC] Q4H Care 05/28/17 17:42 Active Heart Healthy Diet [DIET] Diet 05/28/17 Breakfast Active CBC WITH AUTO DIFF [HEME] AM Lab 05/29/17 05:11 Ordered COMPREHENSIVE METABOLIC PN,CMP [CHEM] AM Lab 05/29/17 05:11 Ordered LIPID PANEL [CHEM] AM Lab 05/29/17 05:11 Ordered MAGNESIUM [CHEM] Routine Lab 05/28/17 15:32 Received TROPONIN I [CHEM] Q6H Lab 05/28/17 21:40 Ordered TROPONIN I [CHEM] Q6H Lab 05/29/17 03:40 Ordered Acetaminophen [Tylenol] Med 05/28/17 17:42 Ordered 650 mg PO Q4H PRN Enoxaparin [Lovenox] Med 05/28/17 17:45 Ordered 40 mg SUBCUT Q24H Nitroglycerin [Nitrostat] Med 05/28/17 17:46 Ordered 0.4 mg SL Q5M PRN Ondansetron [Zofran ODT] Med 05/28/17 17:42 Ordered 4 mg PO Q4H PRN Sodium Chloride 0.9% [Saline Flush] Med 05/28/17 15:11 Active 10 ml FLUSH ASDIRECTED PRN Sodium Chloride 0.9% [Saline Flush] Med 05/28/17 17:42 Ordered 10 ml FLUSH ASDIRECTED PRN Sodium Chloride 0.9% [Saline Flush] Med 05/28/17 15:11 Active 2.5 ml FLUSH ASDIRECTED PRN Sodium Chloride 0.9% [Saline Flush] Med 05/28/17 17:42 Ordered 2.5 ml FLUSH ASDIRECTED PRN oxyCODONE Med 05/28/17 17:42 Ordered 5 mg PO Q4H PRN Peripheral IV Insertion Adult [OM.PC] Routine Oth 05/28/17 17:42 Ordered Saline Lock Insert [OM.PC] Routine Oth 05/28/17 17:42 Ordered Saline Lock Insert [OM.PC] Stat Oth 05/28/17 15:11 Ordered Sequential Compression Device [OM.PC] Per Unit Routine Oth 05/28/17 17:42 Ordered Medication Orders Acetaminophen (Tylenol) 650 mg PO Q4H PRN PRN Reason: Pain (Mild 1-3)/fever Enoxaparin Sodium (Lovenox) 40 mg SUBCUT Q24H CASSY Nitroglycerin (Nitrostat) 0.4 mg SL Q5M PRN PRN Reason: Chest Pain Ondansetron HCl (Zofran Odt) 4 mg PO Q4H PRN PRN Reason: nausea, able to take PO Oxycodone HCl (Oxycodone) 5 mg PO Q4H PRN PRN Reason: Pain (moderate 4-6) Sodium Chloride (Saline Flush) 10 ml FLUSH ASDIRECTED PRN PRN Reason: Keep Vein Open Sodium Chloride (Saline Flush) 2.5 ml FLUSH ASDIRECTED PRN PRN Reason: Keep Vein Open Sodium Chloride (Saline Flush) 10 ml FLUSH ASDIRECTED PRN PRN Reason: Keep Vein Open Sodium Chloride (Saline Flush) 2.5 ml FLUSH ASDIRECTED PRN PRN Reason: Keep Vein Open Assessment/Plan Comment:: This is a 52-year-old male with a significant medical history of anxiety, acid reflux is a significant family history of coronary artery disease presenting with chest pain left-sided with shortness of breath likely secondary to anxiety. Patient is under observation for acute coronary syndrome rule out, troponins will be drawn 3, cardiac monitoring, laboratory evaluation in the a.m. Patient has pain medication on board, if troponins are negative 3 no further chest pain or EKG findings patient shall be discharged with a cardiac stress test as an outpatient and follow-up with PCP.
[2017-05-29 04:17] LABS: CHLORIDE,CL 104 mmol/L (98-107); SODIUM,NA 139 mmol/L (136-148)
[2017-05-29 11:17] VITALS: BP 120/71
--- NOTE | 2017-05-29 13:09 | PCM.DCSUM1 ---
<Kevin Gilbert Z - Last Filed: 06/01/17 02:51> Discharge Summary - Hospital Course HPI Initial Comments: Discharge Summary Date of admission: 05/28/2017 Date of discharge: 05/30/2007. Admitting diagnosis: #1. Left-sided chest pain radiating to the axilla without any EKG changes patient admitted for acute coronary syndrome rule out #2. Family history of cardiovascular disease and ID #3. Gastric esophageal reflux disease, anxiety #4. #5. Discharge diagnoses: #1. Acute chest pain now resolved, acute coronary syndrome ruled out, troponins negative 3, no EKG changes seen #2. GERD, anxiety #3. #4. #5. Consultations: None Procedures: None Hospitalization course: Patient was admitted secondary to acute chest pain rule out, patient was stable throughout his stay he did not have any chest pain, his troponins were negative 3 there was no EKG changes nor any changes on telemetry appreciated. Patient was stable in the a.m. and subsequently the decision was made to discharge the patient with a cardiac stress test to be done in an outpatient setting. The likelihood of the patient's pain was a increased exacerbation of his anxiety likely due to significant family history of cardiovascular disease that scheduled the patient. Disposition on discharge: Home Condition on discharge: Stable Discharge medications: Continuation of home medication Follow-up instructions: Follow-up with PCP, outpatient cardiac stress test - Discharge Data Discharge Date: 05/29/17 Discharge Disposition: Home, Self-Care 01 Condition: Stable - Discharge Diagnosis/Problem(s) (1) Chest pain SNOMED Code(s): 88697564 ICD Code: R07.9 - CHEST PAIN, UNSPECIFIED Status: Acute - Patient Instructions Diet: Heart Healthy Diet Activity: As Tolerated Driving: Do Not Drive Showering/Bathing: June Shower Notify Provider of: Fever, Increased Pain, Swelling and Redness, Drainage, Nausea and/or Vomiting - Discharge Plan Prescriptions/Med Rec: Simvastatin [Zocor] 40 mg PO BID 30 Days #60 tablet Home Medications: Home Meds Esomeprazole Magnesium [Nexium] 40 mg PO ASDIRECTED 06/30/16 [History] Losartan Potassium 100 mg PO BEDTIME 06/30/16 [History] Zolpidem [Ambien] 10 mg PO BEDTIME 06/30/16 [History] Escitalopram Oxalate 10 mg PO DAILY 03/02/17 [History] Simvastatin [Zocor] 40 mg PO BID 30 Days #60 tablet 05/29/17 [Rx] Patient Handouts: Chest Wall Pain, [id number], Simvastatin tablets Referrals: Cici Emanuel, SHOULDER BONER [Nurse Practitioner] - 06/05/17 10:30 am - Discharge Summary/Plan Comment DC Time >30 min.: No - Patient Data Vitals - Most Recent: Last Vital Signs Temp 36.3 C 05/29/17 11:16 Pulse 67 05/29/17 11:16 Resp 22 H 05/29/17 11:16 BP 120/71 05/29/17 11:16 Pulse Ox 95 05/29/17 11:16 Weight - Most Recent: 108.3 kg I&O - Last 24 hours: Intake & Output 05/28/17 05/29/17 05/29/17 22:59 06:59 14:59 Intake Total 850 Balance 850 Lab Results - Last 24 hrs: Laboratory Results - last 24 hr 05/28/17 05/28/17 05/28/17 Range/Units 15:32 15:32 15:32 WBC 6.67 (4.0-11.0) K/uL RBC 5.06 (4.50-5.90) M/uL Hgb 15.7 (13.0-17.0) g/dL Hct 44.9 (38.0-50.0) % MCV 88.7 (80.0-98.0) fL MCH 31.0 (27.0-32.0) pg MCHC 35.0 (31.0-37.0) g/dL RDW Std Deviation 41.1 (28.0-62.0) fl RDW Coeff of Jose David 13 (11.0-15.0) % Plt Count 221 (150-400) K/uL MPV 9.50 (7.40-12.00) fL Neut % (Auto) 49.9 (48.0-80.0) % Lymph % (Auto) 41.2 H (16.0-40.0) % [place] % (Auto) 6.7 (0.0-15.0) % Eos % (Auto) 1.9 (0.0-7.0) % Baso % (Auto) 0.3 (0.0-1.5) % Neut # (Auto) 3.3 (1.4-5.7) K/uL Lymph # (Auto) 2.8 H (0.6-2.4) K/uL [place] # (Auto) 0.5 (0.0-0.8) K/uL Eos # (Auto) 0.1 (0.0-0.7) K/uL Baso # (Auto) 0.0 (0.0-0.1) K/uL Nucleated RBC % 0.0 /100WBC Nucleated RBCs # 0 K/uL Sodium 140 (136-148) mmol/L Potassium 4.3 (3.5-5.1) mmol/L Chloride 104 (98-107) mmol/L Carbon Dioxide 27.9 (21.0-32.0) mmol/L BUN 22 H (7.0-18.0) mg/dL Creatinine 0.9 (0.8-1.3) mg/dL Est Cr Clr Drug Dosing 100.26 mL/min Estimated GFR (MDRD) > 60.0 ml/min Glucose 75 (74-106) mg/dL Calcium 9.2 (8.5-10.1) mg/dL Magnesium (1.5-2.0) mg/dL Total Bilirubin 0.8 (0.2-1.0) mg/dL AST 27 (15-37) IU/L ALT 48 (14-63) IU/L Alkaline Phosphatase 69 (46-116) U/L Troponin I < 0.050 (0.000-0.056) ng/mL B-Natriuretic Peptide < 15 (<100) PG/ML Total Protein 7.3 (6.4-8.2) g/dL Albumin 4.2 (3.4-5.0) g/dL Globulin 3.1 (2.0-3.5) g/dL Albumin/Globulin Ratio 1.4 (1.3-2.8) Triglycerides (0-200) mg/dL Cholesterol (50-200) mg/dL LDL Cholesterol, Calc (60-180) mg/dL VLDL Cholesterol (5-55) mg/dL HDL Cholesterol (40-60) mg/dL Cholesterol/HDL Ratio (3.3-6.0) Lipase 180 (73-393) U/L 05/28/17 05/28/17 05/29/17 Range/Units 15:32 21:41 03:40 WBC 5.36 (4.0-11.0) K/uL RBC 4.90 (4.50-5.90) M/uL Hgb 15.2 (13.0-17.0) g/dL Hct 43.7 (38.0-50.0) % MCV 89.2 (80.0-98.0) fL MCH 31.0 (27.0-32.0) pg MCHC 34.8 (31.0-37.0) g/dL RDW Std Deviation 42.0 (28.0-62.0) fl RDW Coeff of Jose David 13 (11.0-15.0) % Plt Count 197 (150-400) K/uL MPV 9.60 (7.40-12.00) fL Neut % (Auto) 43.6 L (48.0-80.0) % Lymph % (Auto) 46.6 H (16.0-40.0) % [place] % (Auto) 7.5 (0.0-15.0) % Eos % (Auto) 2.1 (0.0-7.0) % Baso % (Auto) 0.2 (0.0-1.5) % Neut # (Auto) 2.3 (1.4-5.7) K/uL Lymph # (Auto) 2.5 H (0.6-2.4) K/uL [place] # (Auto) 0.4 (0.0-0.8) K/uL Eos # (Auto) 0.1 (0.0-0.7) K/uL Baso # (Auto) 0.0 (0.0-0.1) K/uL Nucleated RBC % 0.0 /100WBC Nucleated RBCs # 0 K/uL Sodium (136-148) mmol/L Potassium (3.5-5.1) mmol/L Chloride (98-107) mmol/L Carbon Dioxide (21.0-32.0) mmol/L BUN (7.0-18.0) mg/dL Creatinine (0.8-1.3) mg/dL Est Cr Clr Drug Dosing mL/min Estimated GFR (MDRD) ml/min Glucose (74-106) mg/dL Calcium (8.5-10.1) mg/dL Magnesium 1.8 (1.5-2.0) mg/dL Total Bilirubin (0.2-1.0) mg/dL AST (15-37) IU/L ALT (14-63) IU/L Alkaline Phosphatase (46-116) U/L Troponin I < 0.050 (0.000-0.056) ng/mL B-Natriuretic Peptide (<100) PG/ML Total Protein (6.4-8.2) g/dL Albumin (3.4-5.0) g/dL Globulin (2.0-3.5) g/dL Albumin/Globulin Ratio (1.3-2.8) Triglycerides (0-200) mg/dL Cholesterol (50-200) mg/dL LDL Cholesterol, Calc (60-180) mg/dL VLDL Cholesterol (5-55) mg/dL HDL Cholesterol (40-60) mg/dL Cholesterol/HDL Ratio (3.3-6.0) Lipase (73-393) U/L 05/29/17 05/29/17 Range/Units 03:40 03:40 WBC (4.0-11.0) K/uL RBC (4.50-5.90) M/uL Hgb (13.0-17.0) g/dL Hct (38.0-50.0) % MCV (80.0-98.0) fL MCH (27.0-32.0) pg MCHC (31.0-37.0) g/dL RDW Std Deviation (28.0-62.0) fl RDW Coeff of Jose David (11.0-15.0) % Plt Count (150-400) K/uL MPV (7.40-12.00) fL Neut % (Auto) (48.0-80.0) % Lymph % (Auto) (16.0-40.0) % [place] % (Auto) (0.0-15.0) % Eos % (Auto) (0.0-7.0) % Baso % (Auto) (0.0-1.5) % Neut # (Auto) (1.4-5.7) K/uL Lymph # (Auto) (0.6-2.4) K/uL [place] # (Auto) (0.0-0.8) K/uL Eos # (Auto) (0.0-0.7) K/uL Baso # (Auto) (0.0-0.1) K/uL Nucleated RBC % /100WBC Nucleated RBCs # K/uL Sodium 139 (136-148) mmol/L Potassium 3.9 (3.5-5.1) mmol/L Chloride 104 (98-107) mmol/L Carbon Dioxide 26.7 (21.0-32.0) mmol/L BUN 23 H (7.0-18.0) mg/dL Creatinine 0.9 (0.8-1.3) mg/dL Est Cr Clr Drug Dosing 103.42 mL/min Estimated GFR (MDRD) > 60.0 ml/min Glucose 85 (74-106) mg/dL Calcium 8.8 (8.5-10.1) mg/dL Magnesium (1.5-2.0) mg/dL Total Bilirubin 1.1 H (0.2-1.0) mg/dL AST 28 (15-37) IU/L ALT 45 (14-63) IU/L Alkaline Phosphatase 58 (46-116) U/L Troponin I < 0.050 (0.000-0.056) ng/mL B-Natriuretic Peptide (<100) PG/ML Total Protein 6.6 (6.4-8.2) g/dL Albumin 3.7 (3.4-5.0) g/dL Globulin 2.9 (2.0-3.5) g/dL Albumin/Globulin Ratio 1.3 (1.3-2.8) Triglycerides 370 H (0-200) mg/dL Cholesterol 228 H (50-200) mg/dL LDL Cholesterol, Calc 118 (60-180) mg/dL VLDL Cholesterol 74 H (5-55) mg/dL HDL Cholesterol 36 L (40-60) mg/dL Cholesterol/HDL Ratio 6.3 H (3.3-6.0) Lipase (73-393) U/L Med Orders - Current: Current Medications Acetaminophen (Tylenol) 650 mg PO Q4H PRN PRN Reason: Pain (Mild 1-3)/fever Last Admin: 05/29/17 10:10 Dose: 650 mg Enoxaparin Sodium (Lovenox) 40 mg SUBCUT Q24H CASSY Last Admin: 05/28/17 18:19 Dose: 40 mg Nitroglycerin (Nitrostat) 0.4 mg SL Q5M PRN PRN Reason: Chest Pain Ondansetron HCl (Zofran Odt) 4 mg PO Q4H PRN PRN Reason: nausea, able to take PO Oxycodone HCl (Oxycodone) 5 mg PO Q4H PRN PRN Reason: Pain (moderate 4-6) Sodium Chloride (Saline Flush) 10 ml FLUSH ASDIRECTED PRN PRN Reason: Keep Vein Open Sodium Chloride (Saline Flush) 2.5 ml FLUSH ASDIRECTED PRN PRN Reason: Keep Vein Open Sodium Chloride (Saline Flush) 10 ml FLUSH ASDIRECTED PRN PRN Reason: Keep Vein Open Sodium Chloride (Saline Flush) 2.5 ml FLUSH ASDIRECTED PRN PRN Reason: Keep Vein Open Discontinued Medications Aspirin (Aspirin) 324 mg PO ONETIME ONE Stop: 05/28/17 15:13 Last Admin: 05/28/17 15:40 Dose: 324 mg Nitroglycerin (Nitrostat) 0.4 mg SL Q5M PRN PRN Reason: Chest Pain Last Admin: 05/28/17 15:52 Dose: 0.4 mg <Clayton Chaves - Last Filed: 06/07/17 13:03> - Patient Data Vitals - Most Recent: Last Vital Signs Temp 36.3 C 05/29/17 11:16 Pulse 67 05/29/17 11:16 Resp 22 H 05/29/17 11:16 BP 120/71 05/29/17 11:16 Pulse Ox 95 05/29/17 11:16 Med Orders - Current: Current Medications Discontinued Medications Acetaminophen (Tylenol) 650 mg PO Q4H PRN PRN Reason: Pain (Mild 1-3)/fever Last Admin: 05/29/17 10:10 Dose: 650 mg Aspirin (Aspirin) 324 mg PO ONETIME ONE Stop: 05/28/17 15:13 Last Admin: 05/28/17 15:40 Dose: 324 mg Enoxaparin Sodium (Lovenox) 40 mg SUBCUT Q24H CASSY Last Admin: 05/28/17 18:19 Dose: 40 mg Nitroglycerin (Nitrostat) 0.4 mg SL Q5M PRN PRN Reason: Chest Pain Last Admin: 05/28/17 15:52 Dose: 0.4 mg Nitroglycerin (Nitrostat) 0.4 mg SL Q5M PRN PRN Reason: Chest Pain Ondansetron HCl (Zofran Odt) 4 mg PO Q4H PRN PRN Reason: nausea, able to take PO Oxycodone HCl (Oxycodone) 5 mg PO Q4H PRN PRN Reason: Pain (moderate 4-6) Sodium Chloride (Saline Flush) 10 ml FLUSH ASDIRECTED PRN PRN Reason: Keep Vein Open Sodium Chloride (Saline Flush) 2.5 ml FLUSH ASDIRECTED PRN PRN Reason: Keep Vein Open Sodium Chloride (Saline Flush) 10 ml FLUSH ASDIRECTED PRN PRN Reason: Keep Vein Open Sodium Chloride (Saline Flush) 2.5 ml FLUSH ASDIRECTED PRN PRN Reason: Keep Vein Open - Free Text/Narrative Note: I have examined the patient. I have discussed findings and treatment plan with the resident. I agree with the assessment and plan outlined in the following resident's note.
== END 2017-05-29 14:15 | disposition home or self-care (01) ==
LOC: MW.ED 15:05 → MW.MS 16:42
PROVIDERS: ADMIT Internal Medicine; ATTEND Internal Medicine
DX: R07.9 Chest pain, unspecified (principal); K21.9 Gastro-esophageal reflux disease without esophagitis; E78.5 Hyperlipidemia, unspecified; F41.8 Other specified anxiety disorders; I10 Essential (primary) hypertension; M19.90 Unspecified osteoarthritis, unspecified site; Z87.891 Personal history of nicotine dependence; Z79.899 Other long term (current) drug therapy; Z82.49 Family history of ischemic heart disease and other diseases of the circulatory system; Z88.1 Allergy status to other antibiotic agents
CPT/HCPCS: 36415; 71045; 71045-26; 80053; 80061; 83690; 83735; 83880; 84484; 85025; 96372; 99283; 99285; A9270-GY; G0378; J1650

== ENCOUNTER 2017-09-10 08:09 | Day surgery (SDC) | payer OTHER ==
[~2017-09-10 08:09] MED LIST changes: +Sodium Chloride 0.9% 10 ML Syringe FLUSH PRN; +Sodium Chloride 0.9% 2.5 ML Syringe FLUSH PRN
--- NOTE | 2017-09-10 08:55 | PCM.PREANE ---
Preanesthetic Assessment - Anesthesia/Transfusion/Family Hx Anesthesia History: Prior Anesthesia Without Reaction Family History of Anesthesia Reaction: No Transfusion History: No Prior Transfusion(s) Intubation History: Unknown - Review of Systems General: No Symptoms Pulmonary: No Symptoms Cardiovascular: No Symptoms Neurological: No Symptoms Other: Reports: None - Physical Assessment NPO Status Date: 09/09/17 O2 Sat by Pulse Oximetry: 96 Respiratory Rate: 16 Vital Signs: Last Vital Signs Temp 36.5 C 09/10/17 08:25 Pulse 78 09/10/17 08:25 Resp 16 09/10/17 08:25 BP 155/102 H 09/10/17 08:25 Pulse Ox 96 09/10/17 08:25 Height: 1.78 m Weight: 104.78 kg ASA Class: 2 Mental Status: Alert & Oriented x3 Airway Class: Mallampati = 1 Dentition: Reports: Normal Dentition ROM/Head Extension: Full Lungs: Clear to Auscultation, Normal Respiratory Effort Cardiovascular: Regular Rate, Regular Rhythm - Allergies Allergies/Adverse Reactions: Allergies Allergy/AdvReac Type Severity Reaction Status Date / Time cephalexin [From Keflex] Allergy Rash Verified 09/07/17 09:50 - Anesthesia Plan Pre-Op Medication Ordered: None - Acknowledgements Anesthesia Type Planned: MAC Pt an Appropriate Candidate for the Planned Anesthesia: Yes Alternatives and Risks of Anesthesia Discussed w Pt/Guardian: Yes Pt/Guardian Understands and Agrees with Anesthesia Plan: Yes PreAnesthesia Questionnaire HEENT History: Reports: Hard of Hearing Cardiovascular History: Reports: High Cholesterol, Hypertension Gastrointestinal History: Reports: GERD Musculoskeletal History: Reports: Fracture Other Musculoskeletal History: right thumb Neurological History: Reports: Concussion Psychiatric History: Reports: Anxiety Endocrine/Metabolic History: Reports: Obesity/BMI 30+ - Past Surgical History GI Surgical History: Reports: Colonoscopy, EGD Musculoskeletal Surgical History: Reports: ORIF Other Musculoskeletal Surgeries/Procedures:: ORIF Carpometacarpal right thumb fx /dislocation (fused-no hardware) - SUBSTANCE USE Smoking Status *Q: Former Smoker Tobacco Use Within Last Twelve Months: No Recreational Drug Use History: No - HOME MEDS Home Medications: Home Meds Losartan Potassium 100 mg PO BEDTIME 06/30/16 [History] Zolpidem [Ambien] 10 mg PO BEDTIME 06/30/16 [History] Simvastatin [Zocor] 40 mg PO BEDTIME 09/04/17 [History] Venlafaxine [Venlafaxine HCl ER] 150 mg PO DAILY 09/04/17 [History] Lansoprazole [Prevacid] 30 mg PO QAM 09/07/17 [History] Sucralfate 1 gm PO TID 09/07/17 [History] - CURRENT (IN HOUSE) MEDS Current Meds: Current Medications Lactated Ringer's (Ringers, Lactated) 1,000 mls @ 125 mls/hr IV ASDIRECTED CASSY Last Admin: 09/10/17 08:40 Dose: 125 mls/hr Sodium Chloride (Saline Flush) 10 ml FLUSH ASDIRECTED PRN PRN Reason: Keep Vein Open Sodium Chloride (Saline Flush) 2.5 ml FLUSH ASDIRECTED PRN PRN Reason: Keep Vein Open Sodium Chloride (Saline Flush) 10 ml FLUSH ASDIRECTED PRN PRN Reason: Keep Vein Open Sodium Chloride (Saline Flush) 2.5 ml FLUSH ASDIRECTED PRN PRN Reason: Keep Vein Open
[2017-09-10] MEDS ORDERED: Lidocaine 2% 5 ML SDV ONE (10:17)
[2017-09-10] MEDS ORDERED: Propofol 200 MG/20 ML SDV ONE ×2 (10:17→10:42)
[2017-09-10] MEDS ORDERED: Midazolam 1 MG/ML 2 ML SDV ONE (10:18)
[2017-09-10] MEDS ORDERED: fentaNYL 100 MCG/2 ML SDV ONE (10:19)
--- NOTE | 2017-09-10 11:07 | PCM.OPNOTE ---
- General Post-Op/Procedure Note Date of Surgery/Procedure: 09/10/17 Operative Procedure(s): EGD and colonoscopy Findings: Esophagitis, gastritis, hepatic flexture polyp, diverticulosis Pre Op Diagnosis: H pylori infection, anal pain Post-Op Diagnosis: Esophagitis, gastritis, hepatic flexture polyp, diverticulosis Anesthesia Technique: MARISSA Primary Surgeon: Magali Lester Condition: Good
--- NOTE | 2017-09-10 11:43 | PCM.POSTAN ---
POST ANESTHESIA ASSESSMENT - MENTAL STATUS Mental Status: Alert, Oriented - RESPIRATORY Respiratory Status: Respiratory Rate WNL, Airway Patent, O2 Saturation Stable - CARDIOVASCULAR CV Status: Pulse Rate WNL, Blood Pressure Stable - GASTROINTESTINAL GI Status: No Symptoms - POST OP HYDRATION Hydration Status: Adequate & Stable
--- NOTE | 2017-09-10 11:43 | PCM48HPAN ---
Post Anesthesia Note - EVALUATION WITHIN 48HRS OF ANESTHETIC Vital Signs in Normal Range: Yes Patient Participated in Evaluation: Yes Respiratory Function Stable: Yes Airway Patent: Yes Cardiovascular Function Stable: Yes Hydration Status Stable: Yes Pain Control Satisfactory: Yes Nausea and Vomiting Control Satisfactory: Yes Mental Status Recovered: Yes Resp Rate: 6
[2017-09-10 11:47] VITALS: BP 118/77
--- NOTE | 2017-09-10 13:18 | OR ---
SURGEON: HAMILTON LINDSAY MD DATE OF PROCEDURE: 09/10/2017 PREOPERATIVE DIAGNOSES: 1. Helicobacter pylori infection. 2. Anal pain. POSTOPERATIVE DIAGNOSES: 1. Esophagitis. 2. Gastritis. 3. Diverticulosis. 4. Hepatic flexure polyp. PROCEDURES PERFORMED: Diagnostic EGD and colonoscopy. ANESTHESIA: MAC. INSTRUMENT USED: Olympus endoscope and colonoscope. EXTENT OF EXAM: To the second portion of duodenum, to the cecum. PREPARATION: Good. LIMITATIONS: None. INDICATION FOR EXAMINATION: The patient is a 52-year-old male who recently developed retrosternal burning and pain. An H. pylori antigen test was positive. He was treated with antibiotics. He underwent an esophagram, which was normal. The patient is still having heartburn symptoms. The patient and I discussed the need for a diagnostic EGD. He had a colonoscopy more than 10 years ago which was normal, but is due for another one. He has no family history of colon cancer. He will need to undergo a colonoscopy as well. We discussed both procedures as well as expected perioperative course. We discussed the risks including bleeding, infection, or damage to surrounding structures including perforation. The patient verbalized understanding and wishes to proceed. PROCEDURE IN DETAIL: The patient was brought into the endoscopy suite and placed in the left lateral decubitus position. A time-out was completed verifying the patient's name, age, date of , allergies, and procedure to be performed. Monitored anesthesia care was induced and a bite block was placed in the patient's mouth. Continuous oxygen was provided via nasal cannula throughout the procedure. After adequate sedation was achieved, a well-lubricated endoscope was placed in the patient's mouth and advanced under direct visualization to the second portion of the duodenum. This appeared normal and a photograph was taken. Scope was then fully withdrawn while examining the color, texture, anatomy, and integrity of the upper GI tract. The duodenum appeared normal. The scope was brought into the stomach and a photograph taken of the pylorus as well as the GE junction. Both appeared anatomically normal. The gastric mucosa was mild to moderately inflamed. This inflammation seemed more severe toward the top of the stomach. Biopsies were taken of the gastric antrum, body, and fundus and sent for H. pylori testing and histologic review. The scope was then brought into the distal esophagus. The patient was noted to have some mild esophagitis right at the GE junction. A photograph of this was taken. The remainder of the esophageal mucosa was normal. The scope was removed and this portion of procedure was terminated. A digital rectal exam was performed. I did not see any evidence of an anal fissure. The patient did have a scar consistent with a previous pilonidal cyst excision procedure. The well-lubricated colonoscope was then inserted in the rectum and advanced under direct visualization to the level of the cecum. The cecum was identified by both visual and anatomic landmarks. A photograph was taken of the cecal cap, however, I was unable to retroflex the scope within the cecum. The scope was then fully withdrawn while examining the color, texture, anatomy, and integrity of the mucosa from the cecum to the anal canal. The patient was found to have a 2 to 3 mm sessile polyp at the hepatic flexure. This was removed in piecemeal fashion using a cold biopsy forceps. The patient was noted to have scattered diverticulosis throughout the colon. The scope was brought into the rectum and retroflexed to allow visualization of the anal canal opening. This appeared normal and a photograph was taken. The scope was then straightened out and removed from the patient. The cecum to anus time was 8 minutes. The patient tolerated the procedure well and was taken to PACU in stable condition. ENDOSCOPIC DIAGNOSES: 1. Esophagitis. 2. Gastritis. 3. Diverticulosis. 4. Hepatic flexure polyp. RECOMMENDATIONS: Follow up in clinic in 2 weeks. YUMIKO ESCOBAR /[id number] MTDNicolasa
== END 2017-09-10 11:50 | disposition home or self-care (01) ==
LOC: MW.SDS 08:09
PROVIDERS: ATTEND Surgery
DX: K62.89 Other specified diseases of anus and rectum (principal); D12.3 Benign neoplasm of transverse colon; K57.30 Diverticulosis of large intestine without perforation or abscess without bleeding; K29.50 Unspecified chronic gastritis without bleeding; B96.81 Helicobacter pylori [H. pylori] as the cause of diseases classified elsewhere; K20.9 Esophagitis, unspecified; K21.9 Gastro-esophageal reflux disease without esophagitis; I10 Essential (primary) hypertension; E78.00 Pure hypercholesterolemia, unspecified; E66.9 Obesity, unspecified; Z68.33 Body mass index [BMI] 33.0-33.9, adult; G47.00 Insomnia, unspecified; F41.8 Other specified anxiety disorders; Z79.2 Long term (current) use of antibiotics; Z79.899 Other long term (current) drug therapy; Z88.1 Allergy status to other antibiotic agents; Z87.891 Personal history of nicotine dependence
CPT/HCPCS: 43239; 45380; J2250; J2704; J3010; J7120

== ENCOUNTER 2017-10-03 10:59 | Emergency (ER) | payer OTHER ==
[2017-10-03 11:15] VITALS: BP 135/95
[2017-10-03] MEDS ORDERED: methylPREDNISolone Sodium Succinate 125 MG/2 ML SDV IM ONE (11:23)
--- NOTE | 2017-10-03 11:23 | EDM.PDOC ---
ED HPI GENERAL MEDICAL PROBLEM - General Chief Complaint: ENT Problem Stated Complaint: ORAL ISSUES Time Seen by Provider: 10/03/17 11:09 Source of Information: Reports: Patient History Limitations: Reports: No Limitations - History of Present Illness INITIAL COMMENTS - FREE TEXT/NARRATIVE: HISTORY AND PHYSICAL: History of present illness: Patient is a 52-year-old male who presents to the emergency room with complaints of left low jaw pain she reports that he has had dental work to the left posterior molar 3 previous times with the last dental work having been on . He is concerned as "my tooth doesn't hurt but underneath it does" and feels that there could be some "damage". He is currently on penicillin and has 4 days remaining. He has used [id number] Tylenol, ibuprofen, Orajel and one leftover tablet of [place] -he states has not alleviated his discomfort. He is able to eat and drink appropriately. Denies any fever, chills, chest pain, shortness of breath or cough. Denies any GI or symptoms. Review of systems: As per history of present illness and below otherwise all systems reviewed and negative. Past medical history: As per history of present illness and as reviewed below otherwise noncontributory. Surgical history: As per history of present illness and as reviewed below otherwise noncontributory. Social history: No reported history of drug or alcohol abuse. Family history: As per history of present illness and as reviewed below otherwise noncontributory. Physical exam: General: Well-developed and well-nourished 52-year-old male. Alert and oriented. Nontoxic appearing and in no acute distress. HEENT: Atraumatic, normocephalic, pupils equal and reactive bilaterally, negative for conjunctival pallor or scleral icterus, mucous membranes moist, throat clear, dental decay and darkening of tooth #18. He does have tenderness along the left low gumline extending into the mandible. Otherwise neck is supple , nontender, trachea midline. No drooling or trismus noted. No meningeal signs Lungs: Clear to auscultation, breath sounds equal bilaterally, chest nontender. Heart: S1S2, regular rate and rhythm without overt murmur Abdomen: Soft, nondistended, nontender. Negative for masses or hepatosplenomegaly. Negative for costovertebral tenderness. Pelvis: Stable nontender. Genitourinary: Deferred. Rectal: Deferred. Skin: Intact, warm, dry. No lesions or rashes noted. Extremities: Atraumatic, negative for cords or calf pain. Neurovascular unremarkable. Neuro: Awake, alert, oriented. Cranial nerves II through XII unremarkable. Cerebellum unremarkable. Motor and sensory unremarkable throughout. Exam nonfocal. Notes: X-ray shows no evidence of fracture, erosion or other abnormality. Likely the pain is due to nerve irritation from recent dental work. I will have him complete his antibiotic and we'll place him on a Medrol Dosepak and give him some medication for pain. We discussed care measures and appropriate follow-up with his dentist. He voices understanding and is agreeable to plan of care. Denies any further questions or concerns at this time. Diagnostics: Mandible x-ray Therapeutics: Solu-Medrol [place] PRN (Disp #20) Prescription: Medrol Dosepak Impression: Dentalgia Plan: 1. Complete your antibiotic that your dentist prescribed. 2. Medrol Dosepak (steriod) and [place] as prescribed. 3. Follow up with your dentist next week. Return to the ED as needed and as discussed. Definitive disposition and diagnosis as appropriate pending reevaluation and review of above. Left Lower Oral/Mouth Pain Score (Numeric/FACES): 10 - Related Data Allergies Allergy/AdvReac Type Severity Reaction Status Date / Time cephalexin [From Keflex] Allergy Rash Verified 10/03/17 11:12 Home Meds: Home Meds Losartan Potassium 100 mg PO BEDTIME 06/30/16 [History] Zolpidem [Ambien] 10 mg PO BEDTIME 06/30/16 [History] Simvastatin [Zocor] 40 mg PO BEDTIME 09/04/17 [History] Venlafaxine [Venlafaxine HCl ER] 150 mg PO DAILY 09/04/17 [History] Sucralfate 1 gm PO TID 09/07/17 [History] Lansoprazole [Prevacid] 30 mg PO QAM #0 09/10/17 [Rx] Hydrocodone/Acetaminophen [D[place] 7.5-325 Tablet] 1 each PO Q4HR PRN #20 tablet 10/03/17 [Rx] methylPREDNISolone [Medrol] 4 mg PO DAILY #1 dospk 10/03/17 [Rx] Past Medical History HEENT History: Reports: Hard of Hearing Cardiovascular History: Reports: High Cholesterol, Hypertension Gastrointestinal History: Reports: GERD Musculoskeletal History: Reports: Fracture Other Musculoskeletal History: right thumb Neurological History: Reports: Concussion Psychiatric History: Reports: Anxiety Endocrine/Metabolic History: Reports: Obesity/BMI 30+ - Infectious Disease History Infectious Disease History: Reports: Chicken Pox - Past Surgical History GI Surgical History: Reports: Colonoscopy, EGD Musculoskeletal Surgical History: Reports: ORIF Other Musculoskeletal Surgeries/Procedures:: ORIF Carpometacarpal right thumb fx /dislocation (fused-no hardware) Social & Family History - Family History Family Medical History: Noncontributory - Tobacco Use Smoking Status *Q: Never Smoker - Caffeine Use Caffeine Use: Reports: Coffee - Recreational Drug Use Recreational Drug Use: No ED ROS ENT - Review of Systems Review Of Systems: ROS reveals no pertinent complaints other than HPI. ED EXAM, ENT - Physical Exam Exam: See Below (See dictation) Course - Vital Signs Last Recorded V/S: Last Vital Signs Temp 95.7 F 10/03/17 11:09 Pulse 116 H 10/03/17 11:09 Resp 18 10/03/17 11:09 BP 135/95 H 10/03/17 11:09 Pulse Ox 96 10/03/17 11:09 - Orders/Labs/Meds Orders: Active Orders 24 hr Category Date Time Status Mandible Comp Min 4V [CR] Stat Exams 10/03/17 11:23 Taken Meds: Medications Discontinued Medications Generic Name Dose Route Start Last Admin Trade Name Freq PRN Reason Stop Dose Admin Methylprednisolone Sodium Succinate 125 mg 10/03/17 11:23 10/03/17 12:05 Solu-Medrol IM 10/03/17 11:24 125 mg ONETIME ONE Administration Ondansetron HCl 4 mg 10/03/17 12:02 10/03/17 12:05 Zofran Odt PO 10/03/17 12:03 4 mg ONETIME ONE Administration Departure - Departure Time of Disposition: 12:26 Disposition: Home, Self-Care 01 Clinical Impression: Dentalgia - Discharge Information Prescriptions: Hydrocodone/Acetaminophen [[place] 7.5-325 Tablet] 1 each PO Q4HR PRN #20 tablet PRN Reason: Pain methylPREDNISolone [Medrol] 4 mg PO DAILY #1 dospk Referrals: Norby,Cici A, [employer] [Primary Care Provider] - Forms: ED Department Discharge Additional Instructions: The following information is given to patients seen in the emergency department who are being discharged to home. This information is to outline your options for follow-up care. We provide all patients seen in our emergency department with a follow-up referral. The need for follow-up, as well as the timing and circumstances, are variable depending upon the specifics of your emergency department visit. If you don't have a primary care physician on staff, we will provide you with a referral. We always advise you to contact your personal physician following an emergency department visit to inform them of the circumstance of the visit and for follow-up with them and/or the need for any referrals to a consulting specialist. The emergency department will also refer you to a specialist when appropriate. This referral assures that you have the opportunity for follow-up care with a specialist. All of these measure are taken in an effort to provide you with optimal care, which includes your follow-up. Under all circumstances we always encourage you to contact your private physician who remains a resource for coordinating your care. When calling for follow-up care, please make the office aware that this follow-up is from your recent emergency room visit. If for any reason you are refused follow-up, please contact the [facility] Emergency Department at and asked to speak to the emergency department charge nurse. [facility] Primary Care [address] [place] [id number] 1. Complete your antibiotic that your dentist prescribed. 2. Medrol Dosepak (steroid) and [place] as prescribed. 3. Follow up with your dentist next week. Return to the ED as needed and as discussed. - My Orders Last 24 Hours: My Active Orders 10/03/17 11:23 Mandible Comp Min 4V [CR] Stat - Assessment/Plan Last 24 Hours: My Active Orders 10/03/17 11:23 Mandible Comp Min 4V [CR] Stat
[2017-10-03] MEDS ORDERED: Ondansetron 4 MG Tab.DIS PO ONE (12:02)
[2017-10-03] MEDS ORDERED: Benzocaine 20% Topical Spray UD MUCMEM ONE (12:27)
[2017-10-03] MEDS ORDERED: Lidocaine 2% Viscous Solution 100 ML Bottle PO ONE (12:27)
--- NOTE | 2017-10-05 17:00 | CR ---
EXAM DATE: 10/03/17 PATIENT'S AGE: 52 Patient: YG CESPEDES Facility: [place], [place] Site . Site : 1965 Study: XRay Head Mandible [id number]/11/2018 11:57:59 AM Ordering Physician: Doctor Pace Final Report: INDICATION: Left mandible pain. Dental work 3 times in the last 3 weeks with last time several days ago. TECHNIQUE: Four views of the mandible. COMPARISON: None. FINDINGS: No fracture, erosive change or other abnormality. IMPRESSION: Negative mandible. Dictated by Cleve Kowalski MD @ Oct 03 2017 12:23PM (Electronic Signature) Report Signed by Proxy. KIRSTIE
== END 2017-10-03 12:37 | disposition home or self-care (01) ==
LOC: MW.ED 10:59
DX: K08.89 Other specified disorders of teeth and supporting structures (principal); I10 Essential (primary) hypertension; E66.9 Obesity, unspecified; Z88.1 Allergy status to other antibiotic agents; Z79.899 Other long term (current) drug therapy
CPT/HCPCS: 70110; 96372; 99283; A9270; J2930

== ENCOUNTER 2019-01-28 06:32 | Day surgery (SDC) | payer OTHER ==
[~2019-01-28 06:32] MED LIST changes: -Sodium Chloride 0.9% 10 ML Syringe FLUSH PRN; -Sodium Chloride 0.9% 2.5 ML Syringe FLUSH PRN
[2019-01-28] MEDS ORDERED: Propofol 200 MG/20 ML SDV ONE ×2 (06:56→07:05)
[2019-01-28] MEDS ORDERED: Midazolam 1 MG/ML 2 ML SDV ONE (06:58)
--- NOTE | 2019-01-28 07:19 | PCM.PREANE ---
Preanesthetic Assessment - Anesthesia/Transfusion/Family Hx Anesthesia History: Prior Anesthesia Without Reaction Family History of Anesthesia Reaction: No Transfusion History: No Prior Transfusion(s) Intubation History: Unknown - Review of Systems General: No Symptoms Pulmonary: No Symptoms Cardiovascular: No Symptoms Gastrointestinal: No Symptoms Neurological: No Symptoms Other: Reports: None - Physical Assessment NPO Status Date: 01/27/19 Vital Signs: Last Vital Signs Temp 97.9 F 01/28/19 06:51 Pulse 87 01/28/19 06:51 Resp 14 01/28/19 06:51 BP 148/88 H 01/28/19 06:51 Pulse Ox 96 01/28/19 06:51 Height: 5 ft 11 in Weight: 107.048 kg Mental Status: Alert & Oriented x3 Airway Class: Mallampati = 2 Dentition: Reports: Normal Dentition ROM/Head Extension: Full Lungs: Clear to Auscultation, Normal Respiratory Effort Cardiovascular: Regular Rate, Regular Rhythm - Allergies Allergies/Adverse Reactions: Allergies Allergy/AdvReac Type Severity Reaction Status Date / Time cephalexin [From Keflex] Allergy Rash Verified 01/25/19 08:47 - Blood Blood Available: No - Anesthesia Plan Pre-Op Medication Ordered: None - Acknowledgements Anesthesia Type Planned: General Anesthesia Pt an Appropriate Candidate for the Planned Anesthesia: Yes Alternatives and Risks of Anesthesia Discussed w Pt/Guardian: Yes Pt/Guardian Understands and Agrees with Anesthesia Plan: Yes Additional Comments: PMH: gerd, hld, htn Plan: ga/lma PreAnesthesia Questionnaire HEENT History: Reports: None Cardiovascular History: Reports: High Cholesterol, Hypertension Respiratory History: Reports: Other (See Below) Other Respiratory History: diagnosed with mild emphysema 15 years, not currently on any inhalers Gastrointestinal History: Reports: Diverticulosis, GERD Genitourinary History: Reports: None Musculoskeletal History: Reports: Back Pain, Chronic, Fracture, Osteoarthritis Other Musculoskeletal History: right thumb Neurological History: Reports: Concussion, Migraines Psychiatric History: Reports: Anxiety, Depression Endocrine/Metabolic History: Reports: Obesity/BMI 30+ Hematologic History: Reports: None Immunologic History: Reports: None Oncologic (Cancer) History: Reports: Other (See Below) Other Oncologic History: precancerous skin-judaism area Dermatologic History: Reports: None - Infectious Disease History Infectious Disease History: Reports: Chicken Pox - Past Surgical History Head Surgeries/Procedures: Reports: None HEENT Surgical History: Reports: None Cardiovascular Surgical History: Reports: None Respiratory Surgical History: Reports: None GI Surgical History: Reports: Colonoscopy, EGD Male Surgical History: Reports: None Endocrine Surgical History: Reports: None Neurological Surgical History: Reports: None Musculoskeletal Surgical History: Reports: ORIF Other Musculoskeletal Surgeries/Procedures:: ORIF Carpometacarpal right thumb fx /dislocation (fused-no hardware), left thumb surgery Oncologic Surgical History: Reports: None Dermatological Surgical History: Reports: None - SUBSTANCE USE Smoking Status *Q: Former Smoker Tobacco Use Within Last Twelve Months: No Recreational Drug Use History: No - HOME MEDS Home Medications: Home Meds Losartan Potassium 100 mg PO DAILY 06/30/16 [History] Zolpidem [Ambien] 10 mg PO BEDTIME 06/30/16 [History] Simvastatin [Zocor] 40 mg PO BEDTIME 09/04/17 [History] Venlafaxine [Venlafaxine HCl ER] 150 mg PO DAILY 09/04/17 [History] ClonazePAM [KlonoPIN] 0.5 mg PO TID PRN 01/25/19 [History] Esomeprazole Magnesium [Nexium] 40 mg PO DAILY 01/25/19 [History] - CURRENT (IN HOUSE) MEDS Current Meds: Current Medications Lactated Ringer's (Ringers, Lactated) 1,000 mls @ 125 mls/hr IV [facility]ED [facility] Last Admin: 01/28/19 06:58 Dose: 125 mls/hr Discontinued Medications Midazolam HCl (Versed 1 Mg/Ml) Confirm Administered Dose 2 mg .ROUTE .STK-MED ONE Stop: 01/28/19 06:59 Propofol (Diprivan 20 Ml) Confirm Administered Dose 200 mg .ROUTE .STK-MED ONE Stop: 01/28/19 06:57 Propofol (Diprivan 20 Ml) Confirm Administered Dose 200 mg .ROUTE .STK-MED ONE Stop: 01/28/19 07:06
[2019-01-28] MEDS ORDERED: fentaNYL 100 MCG/2 ML SDV ONE (07:25)
[2019-01-28] MEDS ORDERED: Ketorolac 30 MG/ML SDV ONE (07:25)
[2019-01-28] MEDS ORDERED: Ondansetron 4 MG/2 ML SDV ONE (07:25)
[2019-01-28] MEDS ORDERED: Glycopyrrolate 0.2 MG/ML SDV ONE (07:25)
[2019-01-28] MEDS ORDERED: Lidocaine 2% 5 ML SDV ONE (07:25)
[2019-01-28] MEDS ORDERED: Bupivacaine 0.5% 30 ML SDV ONE (07:28)
--- NOTE | 2019-01-28 09:04 | PCM.OPNOTE ---
- General Post-Op/Procedure Note Date of Surgery/Procedure: 01/28/19 Operative Procedure(s): Excision 2.5 cm right abdominal wall mass. Excision 1.5 cm left upper arm mass. Pre Op Diagnosis: Subcutaneous masses of right abdominal wall and left upper arm. Post-Op Diagnosis: Same Anesthesia Technique: General LMA (ASA II) Primary Surgeon: Khris Soto Fluid Replacement, Intraop: 600 EBL in mLs: 5 Condition: Good Free Text/Narrative:: DICTATION [id number] CPT CODE [id number]
[2019-01-28] MEDS ORDERED: Lactated Ringers 1,000 ML IV SCH (09:15)
--- NOTE | 2019-01-28 09:24 | PCM.POSTAN ---
POST ANESTHESIA ASSESSMENT - MENTAL STATUS Mental Status: Alert - VITAL SIGNS Vital Signs: Last Vital Signs Temp 36 C 01/28/19 08:53 Pulse 100 01/28/19 09:20 Resp 16 01/28/19 09:20 BP 129/79 01/28/19 09:20 Pulse Ox 93 L 01/28/19 09:20 - RESPIRATORY Respiratory Status: Respiratory Rate WNL - CARDIOVASCULAR CV Status: Pulse Rate WNL - GASTROINTESTINAL GI Status: No Symptoms - POST OP HYDRATION Hydration Status: Adequate & Stable
--- NOTE | 2019-01-28 09:42 | PCM48HPAN ---
Post Anesthesia Note - EVALUATION WITHIN 48HRS OF ANESTHETIC Vital Signs in Normal Range: Yes Patient Participated in Evaluation: Yes Respiratory Function Stable: Yes Airway Patent: Yes Cardiovascular Function Stable: Yes Hydration Status Stable: Yes Pain Control Satisfactory: Yes Nausea and Vomiting Control Satisfactory: Yes Mental Status Recovered: Yes Vital Signs: Last Vital Signs Temp 96.8 F 01/28/19 08:53 Pulse 100 01/28/19 09:20 Resp 16 01/28/19 09:20 BP 129/79 01/28/19 09:20 Pulse Ox 93 L 01/28/19 09:20
[2019-01-28 10:41] VITALS: BP 128/76; PULSE 79
--- NOTE | 2019-01-28 11:48 | OR ---
SURGEON: Khris Soto M.D. DATE OF PROCEDURE: 01/28/2019 OPERATIONS PERFORMED: 1. Excision of 1.5 cm subcutaneous mass, left upper arm. 2. Excision of 2.5 cm superficial abdominal wall mass, right mid abdomen. PRIMARY SURGEON: Khris Soto MD. ANESTHESIA: General LMA. ASA CLASSIFICATION: II. PREOPERATIVE DIAGNOSIS: Symptomatic subcutaneous mass, left arm and right abdominal wall. POSTOPERATIVE DIAGNOSIS: Symptomatic subcutaneous mass, left arm and right abdominal wall. ESTIMATED BLOOD LOSS: 5 mL. INTRAOPERATIVE FLUID REPLACEMENT: 600 mL of crystalloid. DESCRIPTION OF PROCEDURE: The patient was taken to the operating room, placed on the operating table in the supine position. Time-out was called for appropriate identification of patient and procedure. Both surgical sites had been marked prior to the patient entering the operating room. The left arm was the more symptomatic mass and this was approached first. The skin was prepped with ChloraPrep solution. Sterile drapes were applied. The skin surrounding the left upper arm mass was infiltrated with 10 mL of 0.5% Marcaine solution. A skin incision was made and deepened through the subcutaneous tissue obtaining hemostasis with the use of electrocautery. 1.5 cm of fatty tissue mass was identified and removed with electrocautery. Bleeding sites were electrocoagulated. The incision was closed in 2 layers, approximating the subcutaneous tissue with 3-0 Vicryl and the skin with subcuticular 4-0 Monocryl. The incision was Steri-Stripped and dressed with a sterile Tegaderm pad. Drapes were all removed, and maintaining sterile technique, the right abdomen was prepped with ChloraPrep solution and again drapes were applied. The skin surrounding the mass was infiltrated with 10 mL of 0.5% Marcaine solution. Skin incision was made and deepened through the subcutaneous tissue, again obtaining hemostasis with the use of electrocautery. Subcutaneous mass was easily identified and removed with a combination of sharp and blunt dissection and electrocautery. Bleeding sites were electrocoagulated. The incision was again closed in 2 layers, approximating the subcutaneous tissue with 3-0 Vicryl and the skin with subcuticular 4-0 Monocryl. The incision was then Steri-Stripped and dressed with a sterile Tegaderm pad. Sponge, needle, and instrument counts were all correct. Following emergence from anesthesia and extubation, the patient was taken to recovery room in satisfactory condition. DANIEL / SHAWN /[id number] CC: Yo Llanes MD [facility]
== END 2019-01-28 10:09 | disposition home or self-care (01) ==
LOC: MW.SDS 06:32
PROVIDERS: ATTEND Surgery
DX: D17.22 Benign lipomatous neoplasm of skin and subcutaneous tissue of left arm (principal); D17.1 Benign lipomatous neoplasm of skin and subcutaneous tissue of trunk; K21.9 Gastro-esophageal reflux disease without esophagitis; E78.00 Pure hypercholesterolemia, unspecified; I10 Essential (primary) hypertension; M19.90 Unspecified osteoarthritis, unspecified site; G43.909 Migraine, unspecified, not intractable, without status migrainosus; F41.9 Anxiety disorder, unspecified; F32.9 Major depressive disorder, single episode, unspecified; E66.9 Obesity, unspecified; Z68.32 Body mass index [BMI] 32.0-32.9, adult; Z88.1 Allergy status to other antibiotic agents; Z79.899 Other long term (current) drug therapy; Z87.891 Personal history of nicotine dependence
CPT/HCPCS: 22902; 24075; J1885; J2001; J2250; J2405; J2704; J3010; J3490; J7120

== ENCOUNTER 2019-11-08 15:43 | Emergency (ER) | payer OTHER ==
[2019-11-08] MEDS ORDERED: Sodium Chloride 0.9% 1,000 ML IV ONE ×2 (15:51→17:55)
--- NOTE | 2019-11-08 16:11 | EDM.PDOC ---
<Avis Méndez R - Last Filed: 11/08/19 17:56> ED HPI GENERAL MEDICAL PROBLEM - General Chief Complaint: Respiratory Problem Stated Complaint: TROUBLE BREATHING, COVID POSITIVE Time Seen by Provider: 11/08/19 15:43 - Related Data Allergies Allergy/AdvReac Type Severity Reaction Status Date / Time cephalexin [From Keflex] Allergy Rash Verified 11/08/19 16:05 Home Meds: Home Meds Losartan Potassium 100 mg PO DAILY 06/30/16 [History] Zolpidem [Ambien] 10 mg PO BEDTIME 06/30/16 [History] Venlafaxine [Venlafaxine HCl ER] 150 mg PO DAILY 09/04/17 [History] ClonazePAM [KlonoPIN] 0.5 mg PO TID PRN 01/25/19 [History] Esomeprazole Magnesium [Nexium] 40 mg PO DAILY 01/25/19 [History] atorvaSTATin [Lipitor] 20 mg PO DAILY 11/08/19 [History] ED ROS GENERAL - Review of Systems Review Of Systems: Comprehensive ROS is negative, except as noted in HPI. ED EXAM, GENERAL - Physical Exam Exam: See Below Course - Re-Assessments/Exams Free Text/Narrative Re-Assessment/Exam: 11/08/19 17:57 Patient states he just came in because his made him. He mostly has body aches and lack of energy. Happy to go home and will see primary next week for recheck or resp clinic. Departure - Departure Time of Disposition: 18:08 Disposition: Home, Self-Care 01 Condition: Good Clinical Impression: COVID-19 - Discharge Information *PRESCRIPTION DRUG MONITORING PROGRAM REVIEWED*: Not Applicable *COPY OF PRESCRIPTION DRUG MONITORING REPORT IN PATIENT MARY: Not Applicable Instructions: COVID-19 Frequently Asked Questions, COVID-19, COVID-19: How to Protect Yourself and Others - CDC, Prevent the Spread of COVID-19 if You Are Sick - [facility] Referrals: PCP,None [Primary Care Provider] - [facility] [Outside] [facility] [Outside] Forms: ED Department Discharge Additional Instructions: The following information is given to patients seen in the emergency department who are being discharged to home. This information is to outline your options for follow-up care. We provide all patients seen in our emergency department with a follow-up referral. The need for follow-up, as well as the timing and circumstances, are variable depending upon the specifics of your emergency department visit. If you don't have a primary care physician on staff, we will provide you with a referral. We always advise you to contact your personal physician following an emergency department visit to inform them of the circumstance of the visit and for follow-up with them and/or the need for any referrals to a consulting specialist. The emergency department will also refer you to a specialist when appropriate. This referral assures that you have the opportunity for follow-up care with a specialist. All of these measure are taken in an effort to provide you with optimal care, which includes your follow-up. Under all circumstances we always encourage you to contact your private physician who remains a resource for coordinating your care. When calling for follow-up care, please make the office aware that this follow-up is from your recent emergency room visit. If for any reason you are refused follow-up, please contact the [facility] Emergency Department at and asked to speak to the emergency department charge nurse. 1. Drink Plenty of fluids and rest 2. Follow up With your primary provider or the respiratory clinic next week 3. Continue with your current regimen for symptom relief <Marina Ward E - Last Filed: 11/09/19 10:07> ED HPI GENERAL MEDICAL PROBLEM - General Source of Information: Reports: Patient History Limitations: Reports: No Limitations - History of Present Illness INITIAL COMMENTS - FREE TEXT/NARRATIVE: HISTORY AND PHYSICAL: History of present illness: Patient is a 54-year-old male who presents to the emergency room with complaints of cough, chest pain and shortness of breath. Patient states he has had symptoms of respiratory illness and was tested for COVID-19 on 10/30/19. He did test positive. He states his was admitted to the hospital and recently discharged to home due to COVID-19. Over the past 24 hours he has had chest pain and increased shortness of breath. He states he is currently taking an Symbicort, azithromycin, prednisone and hydroxychloroquine - which are not helping his symptoms. Review of systems: As per history of present illness and below otherwise all systems reviewed and negative. Past medical history: As per history of present illness and as reviewed below otherwise nonc ontributory. Surgical history: As per history of present illness and as reviewed below otherwise noncontributory. Social history: See social history for further information Family history: As per history of present illness and as reviewed below otherwise noncontributory. Physical exam: General: Well developed and well nourished. Alert and orientated x 3. Nontoxic in appearance and in no acute distress. Vital signs are stable and have been reviewed by me. Nursing notes were reviewed. HEENT: Atraumatic, normocephalic, pupils equal and reactive bilaterally, negative for conjunctival pallor or scleral icterus, mucous membranes moist, TMs normal bilaterally, throat clear, neck supple, nontender, trachea midline. No drooling or trismus noted. No meningeal signs. No hot potato voice noted. Lungs: Clear to auscultation, breath sounds equal bilaterally, chest nontender. Normal work of breathing, no accessory muscles used. Heart: S1S2, regular rate and rhythm without overt murmur Abdomen: Soft, nondistended, nontender. Negative for masses or hepatosplenomegaly. Negative for costovertebral tenderness. Skin: Intact, warm, dry. No lesions or rashes noted. Hematologic: No petechiae or purpra. Mucosa appropriate color and normal nail bed color and refill. Extremities: Atraumatic, moves all extremities per self without difficulty or deficits, negative for cords or calf pain. Neurovascular unremarkable. Neuro: Awake, alert, oriented. Cranial nerves II through XII unremarkable. Cerebellum unremarkable. Motor and sensory unremarkable throughout. Exam nonfocal. Psychiatric: Mood and affect are appropriate. Normal thought process. Answering questions appropriately. Notes: EKG shows a sinus rhythm with a rate of 79. Diagnostics: CBC, CMP, troponin, EKG, chest x-ray, COVID-19 Therapeutics: Prescription: Impression: Plan: Definitive disposition and diagnosis as appropriate pending reevaluation and review of above. Past Medical History HEENT History: Reports: None Cardiovascular History: Reports: High Cholesterol, Hypertension Respiratory History: Reports: Other (See Below) Other Respiratory History: diagnosed with mild emphysema 15 years, not currently on any inhalers Gastrointestinal History: Reports: Diverticulosis, GERD Genitourinary History: Reports: None Musculoskeletal History: Reports: Back Pain, Chronic, Fracture, Osteoarthritis Other Musculoskeletal History: right thumb Neurological History: Reports: Concussion, Migraines Psychiatric History: Reports: Anxiety, Depression Endocrine/Metabolic History: Reports: Obesity/BMI 30+ Hematologic History: Reports: None Immunologic History: Reports: None Oncologic (Cancer) History: Reports: Other (See Below) Other Oncologic History: precancerous skin-[place] area Dermatologic History: Reports: None - Infectious Disease History Infectious Disease History: Reports: Chicken Pox - Past Surgical History Head Surgeries/Procedures: Reports: None HEENT Surgical History: Reports: None Cardiovascular Surgical History: Reports: None Respiratory Surgical History: Reports: None GI Surgical History: Reports: Colonoscopy, EGD Male Surgical History: Reports: None Endocrine Surgical History: Reports: None Neurological Surgical History: Reports: None Musculoskeletal Surgical History: Reports: ORIF Other Musculoskeletal Surgeries/Procedures:: ORIF Carpometacarpal right thumb fx/dislocation (fused-no hardware), left thumb surgery Oncologic Surgical History: Reports: None Dermatological Surgical History: Reports: None Social & Family History - Family History Family Medical History: Noncontributory - Caffeine Use Caffeine Use: Reports: Coffee ED ROS GENERAL - Review of Systems Review Of Systems: Comprehensive ROS is negative, except as noted in HPI. Course - Vital Signs Last Recorded V/S: Last Vital Signs Temp 97.3 F 11/08/19 18:49 Pulse 79 11/08/19 18:49 Resp 17 11/08/19 18:49 BP 132/79 11/08/19 18:49 Pulse Ox 96 11/08/19 18:49 - Orders/Labs/Meds Labs: Laboratory Tests 11/08/19 11/08/19 Range/Units 16:19 16:19 WBC 8.28 (4.0-11.0) K/uL RBC 5.26 (4.50-5.90) M/uL Hgb 16.4 (13.0-17.0) g/dL Hct 48.2 (38.0-50.0) % MCV 91.6 (80.0-98.0) fL MCH 31.2 (27.0-32.0) pg MCHC 34.0 (31.0-37.0) g/dL RDW Std Deviation 45.0 (28.0-62.0) fl RDW Coeff of Jose David 13 (11.0-15.0) % Plt Count 230 (150-400) K/uL MPV 9.80 (7.40-12.00) fL Neut % (Auto) 65.1 (48.0-80.0) % Lymph % (Auto) 28.0 (16.0-40.0) % [place] % (Auto) 6.0 (0.0-15.0) % Eos % (Auto) 0.7 (0.0-7.0) % Baso % (Auto) 0.2 (0.0-1.5) % Neut # (Auto) 5.4 (1.4-5.7) K/uL Lymph # (Auto) 2.3 (0.6-2.4) K/uL [place] # (Auto) 0.5 (0.0-0.8) K/uL Eos # (Auto) 0.1 (0.0-0.7) K/uL Baso # (Auto) 0.0 (0.0-0.1) K/uL Nucleated RBC % 0.0 /100WBC Nucleated RBCs # 0 K/uL Sodium 141 (136-148) mmol/L Potassium 3.9 (3.5-5.1) mmol/L Chloride 105 (98-107) mmol/L Carbon Dioxide 27.0 (21.0-32.0) mmol/L BUN 18 (7.0-18.0) mg/dL Creatinine 1.0 (0.8-1.3) mg/dL Est Cr Clr Drug Dosing 88.21 mL/min Estimated GFR (MDRD) > 60.0 ml/min Glucose 102 (74-106) mg/dL Calcium 9.1 (8.5-10.1) mg/dL Total Bilirubin 1.2 H (0.2-1.0) mg/dL AST 18 (15-37) IU/L ALT 44 (14-63) IU/L Alkaline Phosphatase 109 (46-116) U/L Troponin I < 0.050 (0.000-0.056) ng/mL Total Protein 7.0 (6.4-8.2) g/dL Albumin 3.9 (3.4-5.0) g/dL Globulin 3.1 (2.6-4.0) g/dL Albumin/Globulin Ratio 1.3 (0.9-1.6) Meds: Medications Discontinued Medications Generic Name Dose Route Start Last Admin Trade Name Freq PRN Reason Stop Dose Admin Sodium Chloride 1,000 mls @ 999 mls/hr 11/08/19 15:51 11/08/19 16:13 Normal Saline IV 11/08/19 16:51 999 mls/hr STAT ONE Administration Sodium Chloride 1,000 mls @ 999 mls/hr 11/08/19 17:55 11/08/19 18:01 Normal Saline IV 11/08/19 18:55 999 mls/hr STAT ONE Administration Ketorolac Tromethamine 30 mg 11/08/19 17:55 11/08/19 18:04 Toradol IVPUSH 11/08/19 17:56 30 mg ONETIME ONE Administration Sepsis Event Note (ED) - Evaluation Sepsis Screening Result: No Definite Risk
--- NOTE | 2019-11-08 16:48 | CR ---
Chest: Frontal view of the chest was obtained utilizing portable technique. Comparison: No prior chest x-ray. Heart size and mediastinum are normal. Lungs are clear with no acute parenchymal change. Bony structures are grossly intact. Impression: 1. Nothing acute is seen on portable chest x-ray. Diagnostic code #1 This report was dictated in MDT
[2019-11-08 16:52] LABS: BLOOD UREA NITROGEN,BUN 18 mg/dL (7.0-18.0); CHLORIDE,CL 105 mmol/L (98-107); GLUCOSE RANDOM 102 mg/dL (74-106); POTASSIUM,K 3.9 mmol/L (3.5-5.1); SODIUM,NA 141 mmol/L (136-148)
[2019-11-08] MEDS ORDERED: Ketorolac 30 MG/ML SDV IVPUSH ONE (17:55)
[2019-11-08 18:50] VITALS: BP 132/79; PULSE 79
== END 2019-11-08 18:49 | disposition home or self-care (01) ==
LOC: MW.ED 15:43
DX: U07.1 COVID-19 (principal); J43.9 Emphysema, unspecified; E78.00 Pure hypercholesterolemia, unspecified; I10 Essential (primary) hypertension; K21.9 Gastro-esophageal reflux disease without esophagitis; F32.9 Major depressive disorder, single episode, unspecified; F41.9 Anxiety disorder, unspecified; E66.9 Obesity, unspecified; Z88.1 Allergy status to other antibiotic agents; Z79.899 Other long term (current) drug therapy; Z68.31 Body mass index [BMI] 31.0-31.9, adult
CPT/HCPCS: 36415; 71045; 80053; 84484; 85025; 93005; 96361; 96374; 99285; J1885; J7030